=== PATIENT | male | born 1955 | race Caucasian/White ===

== ENCOUNTER 2017-05-29 10:14 | Inpatient (IN) ==
[2017-05-29] MEDS ORDERED: NS 1,000 ML IV ONE (10:42)
[2017-05-29] MEDS ORDERED: CEFEPIME 1 GM in NS 100 ML IV ONE (10:42)
--- NOTE | 2017-05-29 10:43 | Emergency Department Report ---
Skin/Abscess/FB HPI - General Chief complaint: Skin/Abscess/Foreign Body Stated complaint: swollen scrotum Time Seen by Provider: 05/29/17 10:40 Source: patient Mode of arrival: ambulatory Limitations: no limitations - History of Present Illness HPI narrative: Patient is a 61-year-old male, returns emergency room for evaluation of right scrotal/inguinal pain. Patient was evaluated 3 days ago for same complaint at that time was found have a scrotal abscess that had spontaneously drained. Patient was started on oral antibiotics recommended to follow with his primary care doctor. Patient recently presents to the ER, patient's had increased redness and swelling now going into the inguinal region, patient was post follow-up with primary medical doctor today, however given the increased swelling patient decided present to the ER instead. Patient's had some subjective fevers and chills. MD complaint: rash Onset (ago): day(s) - Related Data Home Medications Medication Instructions Recorded Confirmed Atorvastatin [Lipitor] 10 mg PO DAILY 05/26/17 06/14/17 Multivitamin [One Daily 1 tab PO DAILY 05/26/17 06/14/17 Multivitamin] Nisoldipine 25.5 mg PO DAILY 05/26/17 06/14/17 Valsartan [Diovan] 160 mg PO DAILY 05/26/17 06/14/17 Acetaminophen [Acetaminophen Extra 1,000 mg PO Q6H PRN 05/29/17 06/14/17 Strength] Ascorbate Calcium [Vitamin C] 500 mg PO DAILY 05/29/17 06/14/17 Cholecalciferol (Vitamin D3) 1,000 unit PO DAILY 05/29/17 06/14/17 [Vitamin D3] Magnesium Oxide [Magnesium] 500 mg PO MOWEFR 05/29/17 06/14/17 [employer]-3/Dha/Epa/Fish Oil [Fish Oil 1,000 mg PO DAILY 05/29/17 06/14/17 1,000 mg Softgel] Saw [place] 160 mg PO DAILY 05/29/17 06/14/17 Vitamin E 1,000 unit PO DAILY 05/29/17 06/14/17 Zinc Amino Acid Chelate [Zinc] 50 mg PO TUTHSA 05/29/17 06/14/17 Previous Rx's Medication Instructions Recorded Clindamycin [Cleocin] 300 mg PO QID #28 capsule 06/08/17 Hydrocodone/APAP 10/325 [[place] 1 - 2 tab PO DAILY PRN #10 tablet 06/08/17 10/325] Hydrocodone/APAP 7.5/325 [[place] 1 - 2 tab PO Q8-12HR PRN #20 tab 06/14/17 7.5/325] Allergies Allergy/AdvReac Type Severity Reaction Status Date / Time No Known Allergies Allergy Verified 05/29/17 10:50 Review of Systems Constitutional: Reports: fever, chills. Denies: weakness ENT: Denies: throat pain, dental pain Cardiovascular: Denies: chest pain, palpitations Gastrointestinal: Denies: abdominal pain, nausea, vomiting Genitourinary: Reports: testicular pain, testicular mass. Denies: dysuria, frequency Musculoskeletal: Denies: back pain, joint swelling Neurological: Denies: headache, weakness PFSH Patient Stated Medical History Hypertension Yes Substance Use Disorder Yes: CHEWING TOBACCO Medical History Updates: Hyperlipidemia - Social History Smoking status: Current every day smoker Physical Exam - General General appearance: alert, in no apparent distress - Head Head exam: normocephalic - ENT ENT exam: Present: normal oropharynx, mucous membranes moist - Neck Neck exam: Present: full ROM, trachea midline - Chest Chest inspection: Present: symmetric chest wall rise. Absent: tenderness, rash - Respiratory Respiratory exam: Present: normal lung sounds bilaterally. Absent: respiratory distress, wheezes, stridor - Cardiovascular Cardiovascular exam: Present: regular rate, normal rhythm, normal heart sounds - Abdominal Exam Abdominal exam: Present: soft. Absent: distention, tenderness, normal bowel sounds - exam: Present: normal inspection, other (patient does have markedly increased swelling with erythema of the right scrotum, now tracking up into the right inguinal region. Mild tenderness to palpation, also redness of the thigh) - Extremities Exam Extremities exam: Present: normal inspection, full ROM. Absent: tenderness - Back Exam Back exam: Present: full ROM. Absent: tenderness, CVA tenderness (R), CVA tenderness (L) - Skin Skin exam: Present: warm, dry - Neurological Exam Neurological exam: Present: alert, oriented X3 - Psychiatric Psychiatric exam: Present: normal affect, normal mood Course Vital Signs Temperature 98.5 F 05/29/17 10:21 Pulse Rate 78 05/29/17 10:21 Respiratory Rate 17 05/29/17 10:21 Blood Pressure 145/65 H 05/29/17 10:21 Pulse Oximetry 97 05/29/17 10:21 Temperature 97.0 F 06/08/17 15:17 Pulse Rate 67 06/08/17 15:17 Respiratory Rate 17 06/08/17 15:17 Blood Pressure 114/68 06/08/17 15:17 Pulse Oximetry 97 06/08/17 15:17 Skin/Abscess/Foreign Body - [facility] Narrative Medical decision making narrative: Patient is had a markedly change in the last 72 hours with erythema now tracking up into the inguinal region despite oral antibiotics. Patient is currently failed outpatient management, will obtain CT scan laboratories, start antibiotics. CT scan shows no discrete abscess, patient now with elevated white count, with neutrophilia bands are not elevated, sepsis markers are negative. Discussed case with Dr. Cardenas, he would recommend admit to hospitalist service consult him, discussed with hospitalist service they will admit - Differential Diagnosis Likely: abscess of skin or subcutaneous tissue - Medical Records Attestation: I reviewed the patient's medical records. - Lab Data Attestation: I reviewed the patient's lab results. Result diagrams: 06/08/17 04:21 06/08/17 04:21 Lab Results 05/29/17 05/29/17 05/29/17 Range/Units 11:00 11:00 11:00 WBC 17.1 H (4.5-11.0) T/MM3 RBC 3.06 L (4.50-5.90) M/MM3 Hgb 9.8 L (13.5-17.5) GM/DL Hct 28.0 L (41-53) % MCV 91.5 (80-100) UM3 MCH 32.0 (26-34) UUG MCHC 35.0 (31-37) GM/DL RDW Std Deviation 39.3 (36.9-50.2) FL Plt Count 301 (130-400) T/MM3 MPV 8.7 L (9.4-12.4) UM3 Immature Gran % (Auto) Not performed Neut % (Auto) Not performed Lymph % (Auto) Not performed [place] % (Auto) Not performed Eos % (Auto) Not performed Baso % (Auto) Not performed Neut # Not performed Lymph # Not performed [place] # Not performed Eos # Not performed Baso # Not performed Abs Immat Gran (auto) Not performed Neutrophils % (Manual) 83.0 H (33-66) % Band Neutrophils % 2.0 (0-6) % Lymphocytes % (Manual) 6.0 L (23-45) % Monocytes % (Manual) 9.0 (0-9.0) % Neutrophils # (Manual) 14.2 H (1.8-7.7) T/MM3 Band Neutrophils # 0.3 T/MM3 Lymphocytes # (Manual) 1.0 (1-4.8) T/MM3 Monocytes # (Manual) 1.5 H (0-0.8) T/MM3 RBC Morph Comment Normal Turbidity < 20 (0-20) Sodium 124 L (134-144) MEQ/L Potassium 4.0 (3.6-5) MEQ/L Chloride 91 L (98-107) MEQ/L Carbon Dioxide 20 L (22-30) MEQ/L Anion Gap 13 (5-15) MEQ/L BUN 11.0 (9-20) MG/DL Creatinine 1.1 (0.8-1.5) MG/DL GFR Calculation 69 BUN/Creatinine Ratio 10 (6-26) RATIO Glucose 119 H (75-110) MG/DL Calculated Osmolality 240 L (261-280) MOSM/KG Calcium 9.6 (8.4-10.2) MG/DL Iron (49-181) UG/DL TIBC (261-497) UG/DL % Saturation (13-59) % Icterus Index < 2 (0-7) Plasma Lactate 1.3 (0.6-2.2) MMOL/L Vitamin B12 (239-931) PG/ML Folate (2.76-20) NG/ML Procalcitonin 0.18 NG/ML Specimen Hemolysis < 15 (0-25) Ur Collection Type Urine Color (YELLOW) Urine Clarity Urine pH (5.0-8.0) Ur Specific [place] (1.015-1.025) Urine Protein (NEGATIVE) Urine Glucose (UA) (NEGATIVE) Urine Ketones (NEGATIVE) Urine Occult Blood (NEGATIVE) Urine Nitrate (NEGATIVE) Urine Bilirubin (NEGATIVE) Urine Urobilinogen (NORMAL) EU/DL Ur Leukocyte Esterase (NEGATIVE) Urinalysis Comment 05/29/17 05/29/17 Range/Units 11:00 11:04 WBC (4.5-11.0) T/MM3 RBC (4.50-5.90) M/MM3 Hgb (13.5-17.5) GM/DL Hct (41-53) % MCV (80-100) UM3 MCH (26-34) UUG MCHC (31-37) GM/DL RDW Std Deviation (36.9-50.2) FL Plt Count (130-400) T/MM3 MPV (9.4-12.4) UM3 Immature Gran % (Auto) Neut % (Auto) Lymph % (Auto) [place] % (Auto) Eos % (Auto) Baso % (Auto) Neut # Lymph # [place] # Eos # Baso # Abs Immat Gran (auto) Neutrophils % (Manual) (33-66) % Band Neutrophils % (0-6) % Lymphocytes % (Manual) (23-45) % Monocytes % (Manual) (0-9.0) % Neutrophils # (Manual) (1.8-7.7) T/MM3 Band Neutrophils # T/MM3 Lymphocytes # (Manual) (1-4.8) T/MM3 Monocytes # (Manual) (0-0.8) T/MM3 RBC Morph Comment Turbidity (0-20) Sodium (134-144) MEQ/L Potassium (3.6-5) MEQ/L Chloride (98-107) MEQ/L Carbon Dioxide (22-30) MEQ/L Anion Gap (5-15) MEQ/L BUN (9-20) MG/DL Creatinine (0.8-1.5) MG/DL GFR Calculation BUN/Creatinine Ratio (6-26) RATIO Glucose (75-110) MG/DL Calculated Osmolality (261-280) MOSM/KG Calcium (8.4-10.2) MG/DL Iron 18 L (49-181) UG/DL TIBC 264 (261-497) UG/DL % Saturation 7 L (13-59) % Icterus Index (0-7) Plasma Lactate (0.6-2.2) MMOL/L Vitamin B12 634 (239-931) PG/ML Folate > 20.0 H (2.76-20) NG/ML Procalcitonin NG/ML Specimen Hemolysis (0-25) Ur Collection Type Urine, clean catch Urine Color Yellow (YELLOW) Urine Clarity Clear Urine pH 5.0 (5.0-8.0) Ur Specific [place] <=1.005 L (1.015-1.025) Urine Protein Negative (NEGATIVE) Urine Glucose (UA) Negative (NEGATIVE) Urine Ketones Negative (NEGATIVE) Urine Occult Blood Trace-intact (NEGATIVE) Urine Nitrate Negative (NEGATIVE) Urine Bilirubin Negative (NEGATIVE) Urine Urobilinogen 0.2 (NORMAL) EU/DL Ur Leukocyte Esterase Negative (NEGATIVE) Urinalysis Comment Microscopic not ind. - Radiology Data Attestation: I reviewed the patient's radiology results. CT scan: Severe erythema and didn't edema consistent with cellulitis no signs of abscess Disposition Clinical Impression: Cellulitis Qualifiers: Site of cellulitis: other site Qualified Code(s): L03.818 - Cellulitis of other sites Leukocytosis Qualifiers: Leukocytosis type: other Qualified Code(s): D72.828 - Other elevated white blood cell count Disposition: To [facility] Acute Care Condition: Stable Time of Disposition: 13:52 - Seen By: physician
[2017-05-29] MEDS: SALINE FLUSH 10ml SYRINGE IVF PRN (11:06)
[2017-05-29] MEDS ORDERED: SALINE FLUSH 10ml SYRINGE ONE (11:43)
[2017-05-29] MEDS ORDERED: NS 100 ML ONE (11:43)
[2017-05-29] MEDS ORDERED: IOHEXOL 300mg/ml 75ml INJECTION ONE (11:43)
--- NOTE | 2017-05-29 12:55 | CT Scan Report ---
Indication: right sided scrotal abscess now induration inguinal PROCEDURE: CT pelvis w con: Encounter: Initial Comparison: None Technique: Axial postcontrast CT imaging of the pelvis was performed with coronal and sagittal two-dimensional reformats. Automated Exposure Control and Iterative Reconstruction dose reducing techniques were utilized. Contrast: Omnipaque 300 74mL Findings: The visualized small and large bowel loops in the pelvis are unremarkable. The bladder appears normal. No free fluid within the pelvis. Muscular attenuation is within normal limits. There is severe edema throughout the scrotum with scrotal skin thickening up to 1.5 cm in approximate thickness. The testicles cannot be seen discretely apart from this edematous tissue. There is also skin thickening and edema involving the penile shaft with edematous superficial skin measuring over 1 cm in thickness. There is inflammation extending along the right inguinal canal region with a few reactive lymph nodes and skin thickening. There is no discrete rim-enhancing abscess or drainable fluid collection appreciated. I do not see any subcutaneous or fascial area gas to suggest a necrotizing fasciitis/Anthony's gangrene. Bone windows show degenerative changes in the lower lumbar spine. There is a coarse probable calcification seen within the anterior scrotum measuring 6 mm in size which appears to be in the thickened skin layer. Impression: Severe penile, scrotal and right inguinal area inflammation and edema presumably due to a severe cellulitis. No drainable abscess seen. .
[2017-05-29 14:59] VITALS: BMI 27.9
[2017-05-29] MEDS ORDERED: ONDANSETRON 4 MG/2 ML INJECTION IVP PRN (16:46)
[2017-05-29] MEDS ORDERED: HYDROMORPHONE 2 MG/ML INJECTION IVP PRN (16:46)
[2017-05-29] MEDS ORDERED: ACETAMINOPHEN 500 MG TABLET PO PRN ×2 (17:02→17:08)
[2017-05-29] MEDS: PANTOPRAZOLE 40 MG INJECTION IVP SCH (17:10)
[2017-05-29] MEDS: NS 1,000 ML IV SCH (17:11)
[2017-05-29] MEDS: CLINDAMYCIN PB 600 MG/50 ML BAG IV SCH (17:21)
--- NOTE | 2017-05-29 17:22 | History & Physical Report ---
History of Present Illness Date: 05/29/17 Chief complaint: groin pain and cellulitis HPI: The patient is very pleasant 61-year-old male who states that he noted on the of this month that he had a bulge on the bottom of his right scrotum. He went to the emergency room and it was lanced and he was started on Bactrim. He was told to follow-up with his primary care physician today. Patient noted that when he went back to work on the the area became more swollen and painful and it was hard for him to work. He was intermittently using cold packs to the area to try to help it. Today he noticed that he had increased redness and tenderness in the scrotum penis and groin and presented to the emergency room. In the ER labs showed a white count of 17.1 with 83% neutrophils and 2% bands. Hemoglobin was 9.8. Temperature was 100.7. Heart rate 102. Blood pressure 179/ 82. Lactate was normal at 1.3. Sodium was 124. Remainder of the metabolic profile was essentially normal. Blood cultures were obtained and the patient was started on cefepime and vancomycin. CT pelvis was obtained and showed severe penile, scrotal and right inguinal area inflammation and edema presumably due to a severe cellulitis. No drainable abscess seen. No subcutaneous or fascial area gas to suggest a necrotizing fasciitis or Anthony' s gangrene. The hospital service was called to admit the patient. Dr. Cardenas was notified by the ER physician and was agreeable to surgical consultation. On my exam the patient states that he is tired and feels cold. He works nights so this is the time of day he is usually sleeping. He denies any pain in the right groin unless he is moving. He is not having any difficulties urinating. He has not necessarily felt febrile or sweaty. He has not noticed any chills. He does feel cold but he attributes this to the hospital being cold. He has been eating and drinking okay. He has not had any unusual weight loss. He states that since being in the emergency room he has a mild cough and phlegm in his throat. He states he has chronic anemia and is on iron. He is scheduled for a colonoscopy later this week. He has never had a colonoscopy in the past. He denies any hematemesis, black stools or red bloody stools. He denies any bleeding problems other than easy bruising. Review of Systems Review of systems: Comprehensive review of systems is negative other than the above in history of present illness [facility] Patient Stated Medical History Hypertension Yes Osteoarthritis Yes Substance Use Disorder Yes: CHEWING TOBACCO Hyperlipidemia Chronic iron deficiency anemia-scheduled for first colonoscopy later this week Medical History Updates: Hyperlipidemia Surgical History: Bilateral knee replacements Family History: Both parents in their early 60s and the patient states the cause of was unknown. - Social History Smoking status: Current every day smoker (chews tobacco, not a smoker) Alcohol intake frequency: 3 or more drinks per day (2-3 beers a day-never had DTs) Medications Home Medications Medication Instructions Recorded Confirmed Type Atorvastatin [Lipitor] 10 mg PO DAILY 05/26/17 05/29/17 History Multivitamin [One Daily 1 tab PO DAILY 05/26/17 05/29/17 History Multivitamin] Nisoldipine [Nisoldipine] 25.5 mg PO DAILY 05/26/17 05/29/17 History Valsartan [Diovan] 160 mg PO DAILY 05/26/17 05/29/17 History Acetaminophen [Acetaminophen Extra 1,000 mg PO Q6H PRN 05/29/17 05/29/17 History Strength] Ascorbate Calcium [Vitamin C] 500 mg PO DAILY 05/29/17 05/29/17 History Cholecalciferol (Vitamin D3) 1,000 unit PO DAILY 05/29/17 05/29/17 History [Vitamin D3] Ferrous Sulfate [Iron] 325 mg PO DAILY 05/29/17 05/29/17 History Magnesium Oxide [Magnesium] 500 mg PO MOWEFR 05/29/17 05/29/17 History [place]-3/Dha/Epa/Fish Oil [Fish Oil 1,000 mg PO DAILY 05/29/17 05/29/17 History 1,000 mg Softgel] Saw [place] 160 mg PO DAILY 05/29/17 05/29/17 History Vitamin E 1,000 unit PO DAILY 05/29/17 05/29/17 History Zinc Amino Acid Chelate [Zinc] 50 mg PO TUTHSA 05/29/17 05/29/17 History Allergies Allergy/AdvReac Type Severity Reaction Status Date / Time No Known Allergies Allergy Verified 05/29/17 10:50 Exam Vital Signs: Temperature 102.5 F H 05/29/17 16:52 Pulse Rate 100 05/29/17 16:52 Respiratory Rate 20 05/29/17 16:52 Blood Pressure 137/66 05/29/17 16:52 Pulse Oximetry 92 05/29/17 16:52 Oxygen Delivery Method Room Air Height: 1.83 m Weight: 93.5 kg Body Mass Index: 27.9 Comments: GEN-alert, oriented, no acute distress HEENT-sclera anicteric, pupils equal, oropharynx is moist NECK-supple, no carotid bruits CV-regular rate and rhythm with a 2/6 systolic murmur CHEST-clear to auscultation bilaterally ABD-soft, nontender, nondistended with positive bowel sounds -the patient has some mild penile edema and erythema, he has erythema and induration of the right side of his scrotum with a firmness about the size of an olive in the inferior portion of the scrotum and erythema of the right groin and the upper right medial thigh. The right medial groin is indurated and tender as is the scrotum. No open lesions are seen and there are no signs of drainage EXT-no edema NEURO-alert and oriented 3, moves all 4 extremities SKIN-warm and dry. Face is mildly flushed but no rashes. No itching. Results - Labs CBC & Chem 7: 05/29/17 11:00 05/29/17 11:00 Labs: First lactate 1.3, repeat lactate 1.0. Pro calcitonin 0.18 Microbiology Results: Blood cultures obtained and are pending - Impressions Impression Severe cellulitis of the right groin, scrotum and penis Sepsis -fever, elevated white count, cellulitis Hyponatremia Mild metabolic acidosis Iron Deficiency anemia-chronic Hypertension Chronic alcohol use 2-3 beers per day Easy bruising Plan The patient is being admitted as inpatient secondary to sepsis from cellulitis. Continue vancomycin and cefepime that were initiated in the emergency room. Add clindamycin IV. Pharmacy consult for vancomycin dosing. Monitor vital signs closely with sepsis. Normal saline at 100 and hour. Recheck CBC, BMP tomorrow. Anemia workup with Hemoccults, iron panel, B-12 and folate. Check INR and PTT for easy bruising Hold antihypertensives at this time secondary to sepsis Monitor for signs of all withdrawal, although, patient's reported alcohol use is not overly excessive Greater than 1 hour of time spent seeing and evaluating the patient in determining care plan Sepsis Assessment - Evaluation Sepsis screening result: Sepsis Risk Hospital Course Summary Disclaimer: The visit summary below is not to be considered part of the above Progress Note.
[2017-05-29] MEDS: CEFEPIME 1 GM in NS 100 ML IV SCH ×2 (17:54→23:40)
--- NOTE | 2017-05-29 18:23 | Pharmacy Consult-Antibiotics ---
Pharmacy Consult-Vancomycin - Laboratory Information WBC 17.1 T/MM3 (4.5-11.0) H 05/29/17 11:00 BUN 11.0 MG/DL (9-20) 05/29/17 11:00 Creatinine 1.1 MG/DL (0.8-1.5) 05/29/17 11:00 Procalcitonin 0.18 NG/ML 05/29/17 11:00 - Consult Information 61 y.o. male on Vancomycin protocol, clindamycin and cefepime for empiric coverage of sepsis secondary to cellulitis. goal trough range= 15 - 20 mcg/ml Vancomycin 2,000 mg iv x1 dose was started in ER. Will give Vancomycin 1,750 mg IV q12h. This gives an estimated trough of ~16 mcg/ml. Pharmacy will monitor and adjust as needed. Thank you, Brittanie Faulkner [facility]
[2017-05-29] MEDS: THIAMINE 200mg/2ml INJECTION IVP SCH (19:05)
[2017-05-29] MEDS: FOLIC ACID 5 MG/ML INJECTION IVP SCH (19:05)
[2017-05-29] MEDS: ATORVASTATIN 10 MG TABLET PO SCH (22:00)
[2017-05-30] MEDS: CLINDAMYCIN PB 600 MG/50 ML BAG IV SCH ×3 (02:30→17:08)
[2017-05-30] MEDS: NS 1,000 ML IV SCH ×3 (04:28→13:38)
[2017-05-30] MEDS: CEFEPIME 1 GM in NS 100 ML IV SCH ×4 (05:52→23:24)
--- NOTE | 2017-05-30 07:20 | General Surgery Consult Note ---
Consult date: 05/30/17 Attending Physician: Mireya George MD Reason for consult: wound care (scrotum and inguinal cellulitis) [facility] Patient Stated Medical History Hypertension Yes Osteoarthritis Yes Substance Use Disorder Yes: CHEWING TOBACCO Medical History Updates: Hyperlipidemia Surgical History: Bilateral knee replacements Family History: parents in their 60's, not sure of cause - Social History Alcohol intake frequency: 0-2 drinks per day Current occupational status: employed Does patient use chewing tobacco?: Yes Medications Home Medications Medication Instructions Recorded Confirmed Type Atorvastatin [Lipitor] 10 mg PO DAILY 05/26/17 05/29/17 History Multivitamin [One Daily 1 tab PO DAILY 05/26/17 05/29/17 History Multivitamin] Nisoldipine [Nisoldipine] 25.5 mg PO DAILY 05/26/17 05/29/17 History Valsartan [Diovan] 160 mg PO DAILY 05/26/17 05/29/17 History Acetaminophen [Acetaminophen Extra 1,000 mg PO Q6H PRN 05/29/17 05/29/17 History Strength] Ascorbate Calcium [Vitamin C] 500 mg PO DAILY 05/29/17 05/29/17 History Cholecalciferol (Vitamin D3) 1,000 unit PO DAILY 05/29/17 05/29/17 History [Vitamin D3] Ferrous Sulfate [Iron] 325 mg PO DAILY 05/29/17 05/29/17 History Magnesium Oxide [Magnesium] 500 mg PO MOWEFR 05/29/17 05/29/17 History [place]-3/Dha/Epa/Fish Oil [Fish Oil 1,000 mg PO DAILY 05/29/17 05/29/17 History 1,000 mg Softgel] Saw [place] 160 mg PO DAILY 05/29/17 05/29/17 History Vitamin E 1,000 unit PO DAILY 05/29/17 05/29/17 History Zinc Amino Acid Chelate [Zinc] 50 mg PO TUTHSA 05/29/17 05/29/17 History Allergies Allergy/AdvReac Type Severity Reaction Status Date / Time No Known Allergies Allergy Verified 05/29/17 10:50 Review of Systems 10-point ROS: negative except for HPI and the following: - General General: Present: chills - Respiratory Respiratory: Present: cough - Gastrointestinal Additional comments: Scheduled for colonoscopy with Ronald June 01 - Vital Signs Last Vital Signs Temp 99.5 F 05/30/17 04:00 Pulse 77 05/30/17 04:00 Resp 16 05/30/17 04:00 BP 127/77 05/30/17 04:00 Pulse Ox 95 05/30/17 04:00 - Laboratory Result Diagrams: 05/30/17 04:35 05/30/17 04:35 General Surgery Results - Results Labs: 05/30/17 04:35 05/30/17 04:35 Hospital Course Summary Disclaimer: The visit summary below is not to be considered part of the above Progress Note. Sepsis Assessment - Evaluation Sepsis screening result: No Definite Risk
--- NOTE | 2017-05-30 08:15 | Consultation ---
DATE OF CONSULTATION 05/29/2017 FINDINGS Mr. Cloud is a 61-year-old gentleman I was asked to see today as a result of his history and physical findings of right inguinal pain, cellulitis involving right inguinal region. The patient informs me that over the course of the weekend he had noted a "knot" involving his right testicle. The patient states he presented to our emergency room facility over the weekend and had a small abscess involving his right testicle "lanced." The patient states that he was seen by the emergency room physician who had "stuck a knife into abscess". The patient states that he was given a prescription for antibiotics but did not have this filled until Sunday. The patient states that after going to the emergency room on Sunday he had placed a fair amount of ice overlying the right scrotal region. The patient states that the swelling had markedly improved. The patient states that he noted earlier today that the swelling and redness had become significantly worse involving the right inguinal region and right scrotal region. He therefore re-presented to the emergency room for further evaluation. Upon questioning the patient, he denied any history for fever or chills. Reviewing the patient's electronic medical record, I do see, however, that he had a fever earlier today of 102. Upon questioning the patient , he denied much pain within the right inguinal region or the right scrotal region unless he "walked around." The patient states that when he was lying in bed he did not have much pain but with ambulation noted a fair amount of pain within the right inguinal/ right testicular region. The patient denies history for diabetes mellitus. He denies prior history for wound infections or abscesses involving his skin in the past. PAST MEDICAL HISTORY Will be performed by my nurse practitioner, Adelfo Raya. PAST SURGICAL HISTORY Will be performed by my nurse practitioner, Adelfo Raya. MEDICATIONS Will be performed by my nurse practitioner, Adelfo Raya. ALLERGIES Will be performed by my nurse practitioner, Adelfo Raya. SOCIAL HISTORY Will be performed by my nurse practitioner, Adelfo Raya. FAMILY HISTORY Will be performed by my nurse practitioner, Adelfo Raya. REVIEW OF SYSTEMS Will be performed by my nurse practitioner, Adelfo Raya. PHYSICAL EXAMINATION Mr. Cloud is a 61-year-old gentleman who upon my entering the room was resting and did not appear to be in any acute distress. VITAL SIGNS: Temperature 102.5. Pulse 100. Respirations 20. Blood pressure 137/66. SaO2 92% on room air. HEENT: Normocephalic. Pupils are equal, round and reactive to light and accommodation. CHEST: Clear to auscultation bilaterally. HEART: Regular rate and rhythm. Normal S1 and S2 without gallops, murmurs or clicks. ABDOMEN: Palpation of the abdomen reveals it to be soft and nontender. I do not appreciate any evidence for hepatosplenomegaly or abnormal masses. EXTREMITIES: Without clubbing, cyanosis, or edema. NEURO: Cranial nerves II-XII grossly intact. Patient is without focal motor or sensory deficits. : Attention was focused to the area of concern. There is marked induration and erythema involving the right inguinal region. One can feel a marked area of firmness at this location. There is no evidence for subcutaneous crepitus upon palpation. This area of erythema and induration does extend down into the right testicular region. One can see a small ulcerated open wound involving the lateral aspect of the right scrotum. The patient states this is where the "ER doctor stuck the knife." There is small amount of purulent drainage coming forth from the wound opening. There is not as much induration and erythema noted within the scrotum as within the right inguinal region. The area of erythema and edema also extends upon to the shaft of the penis itself. There is no evidence for "purplish discoloration" of the skin involving the inguinal region, scrotal region or shaft of the penis. The skin is, as stated above, quite erythematous in nature. LABORATORY/RADIOGRAPH EVALUATION The patient had a CBC and his white count was elevated at 17.1. Did have a left shift with 83% neutrophils and 2% bands. A CMP was obtained and found to be essentially within normal limits. A plasma lactate level was obtained as well as a procalcitonin level and found to be within normal limits. The patient had a CT scan of his abdomen and pelvis obtained. I did review the CT scan personally as well as the dictated report. The CT scan revealed severe penile, scrotal and right inguinal inflammation and edema. There was no drainable abscess identified. Findings were consistent with that of severe cellulitis. There was no evidence of subcutaneous gas to suggest necrotizing fasciitis. ASSESSMENT 61-year-old gentleman with severe cellulitis involving right inguinal region/ right scrotal region. The patient at this time appears to be without Anthony' s gangrene/necrotizing fasciitis. PLAN The patient was informed that I am concerned in regard to the marked inflammatory process present involving his right inguinal region and right scrotal region. At this point in time it is my clinical intuition that he does not have necrotizing fasciitis/Anthony's gangrene. It would be my recommendation that we continue with broad-spectrum antibiotics as initiated upon admission. Will reevaluate the situation tomorrow morning. If there has been progression of the cellulitis or if his clinical status has worsened, will likely proceed with surgical exploration of the right inguinal region and right scrotal region at that time despite his negative CT scan and normal plasma lactate level and calcitonin level. If, on the other hand, one begins to see some improvement from a clinical standpoint as well as from a laboratory standpoint, will then continue to follow closely. Will go ahead and give the patient clear liquids this evening. Will make him n.p.o. after midnight. Will reevaluate tomorrow morning and proceed accordingly as above. DEBORAH
[2017-05-30] MEDS: FOLIC ACID 5 MG/ML INJECTION IVP SCH (08:39)
[2017-05-30] MEDS: PANTOPRAZOLE 40 MG INJECTION IVP SCH (08:41)
[2017-05-30] MEDS: THIAMINE 200mg/2ml INJECTION IVP SCH (08:41)
[2017-05-30] MEDS: SALINE FLUSH 10ml SYRINGE IVF PRN (08:47)
--- NOTE | 2017-05-30 09:13 | XRay Report ---
Indication: cough PROCEDURE: XR chest 1V: Encounter: Initial Comparison: None FINDINGS: The lungs are clear. There is no abnormal airspace opacity, pleural effusion or pneumothorax identified. The heart size, pulmonary vasculature and mediastinum are within normal limits. IMPRESSION: No acute cardiopulmonary abnormality. .
--- NOTE | 2017-05-30 10:32 | Progress Note ---
DATE 05/30/2017 FINDINGS Mr. Cloud states that this morning he is "worse." He is having more pain. He states that the redness has increased in size. VITALS: The patient has been afebrile since 10 o'clock last evening. T-max at 10 o'clock was 100.2. Current temperature 99.0, pulse 72, respiration 17, blood pressure 140/77. HEENT: Normocephalic. Pupils are equal, round and reactive to light and accommodation. CHEST: Clear to auscultation bilaterally. HEART: Regular rate and rhythm. Normal S1 and S2 without gallops, murmurs or clicks. ABDOMEN: Soft, nontender. Attention was focused the right inguinal region. The erythema has increased in size from last evening. The area was fairly well localized to the inguinal ligament region last evening. Now it has spread onto the lower abdominal wall, right hip, and right thigh region. There is still marked induration involving the inguinal region. Palpation does not reveal any evidence for fluctuance. Right scrotum continues to have a small pustule/ opening along the lateral aspect of the scrotum itself. Scrotum is also found be quite indurated and erythematous in nature. LABORATORY/RADIOGRAPH EVALUATION The patient's white count has actually increased to 18.6. He has increased bandemia now at 8%. ASSESSMENT 61-year-old gentleman with history for a right scrotal abscess which has now developed marked associated cellulitis and induration. Rule out necrotizing fasciitis. PLAN Given the increasing redness, increasing discomfort, increasing leukocytosis, increased bandemia, it is my recommendation to the patient that we should err on the cautious side and go ahead and proceed with exploration of his inguinal/ scrotal cellulitis/wound. It is my clinical intuition that we are not dealing with that of necrotizing fasciitis, but nonetheless, as a result of above indications, I do believe that it is indicated to proceed with additional exploration and excisional debridement as dictated upon intraoperative findings. I did discuss with the patient what exploration of the scrotal wound and inguinal cellulitis would entail with additional possible excisional surgical debridement pending intraoperative findings. The patient understood and wished to proceed. DEBORAH
[2017-05-30] MEDS ORDERED: PROPOFOL 20 ML ONE ×2 (11:55→13:11)
[2017-05-30] MEDS ORDERED: FentaNYL 100 MCG/2 ML INJECTION ONE ×2 (11:56→12:49)
--- NOTE | 2017-05-30 12:04 | Anesthesia Preoperative Report ---
Anesthesia Preoperative Record - Date and Time Date: 05/30/17 Preoperative Diagnosis: Cellulitis and sepsis Proposed Procedure: excisional debridement scrotal wound NPO Since Date: 05/30/17 NPO Since Time: 00:01 Allergies/Adverse Reactions: Allergies Allergy/AdvReac Type Severity Reaction Status Date / Time No Known Allergies Allergy Verified 05/29/17 10:50 - Vital Signs Vital Signs: Temperature 98.4 F 05/30/17 11:26 Pulse Rate 79 05/30/17 11:26 Respiratory Rate 16 05/30/17 11:26 Blood Pressure 142/71 H 05/30/17 11:26 Pulse Oximetry 95 05/30/17 11:26 Oxygen Delivery Method Room Air Height and Weight: Height 1.83 m Weight 96 kg Body Mass Index 27.9 - Medications Inpatient Medications: Current Medications Acetaminophen (Tylenol) 650 mg PO Q5H PRN PRN Reason: Discomfort Last Admin: 05/29/17 17:11 Dose: 650 mg Acetaminophen (Tylenol) 1,000 mg PO Q6H PRN PRN Reason: Pain Acetaminophen/Hydrocodone Bitart ([place] 5/325) 1 tab PO Q6H PRN PRN Reason: Pain Atorvastatin Calcium (Lipitor) 10 mg PO HS [facility] Last Admin: 05/29/17 22:00 Dose: 10 mg Folic Acid (Folate) 1 mg IVP DAILY [facility] Last Admin: 05/30/17 08:39 Dose: 1 mg Hydromorphone HCl (Dilaudid) 0.5 - 1 mg IVP Q2H PRN PRN Reason: Pain Sodium Chloride (Normal Saline) 1,000 mls @ 100 mls/hr IV .Q10H [facility] Last Admin: 05/30/17 07:13 Dose: 100 mls/hr Clindamycin Phosphate (Cleocin Premix) 600 mg in 50 mls @ 100 mls/hr IV Q8H [facility] Last Infusion: 05/30/17 09:09 Dose: Infused Cefepime HCl 1 gm/ Sodium (Chloride) 100 mls @ 200 mls/hr IV Q6H [facility] Last Infusion: 05/30/17 06:22 Dose: Infused Vancomycin HCl 1,750 mg/ (Sodium Chloride) 500 mls @ 250 mls/hr IV Q12H [facility] Last Infusion: 05/30/17 02:30 Dose: Infused Ondansetron HCl (Zofran) 4 mg IVP Q6H PRN PRN Reason: Nausea &/or vomiting Pantoprazole Sodium (Protonix Iv) 40 mg IVP DAILY [facility] Last Admin: 05/30/17 08:41 Dose: 40 mg Sodium Chloride (Iv Flush) 10 - 80 ml IVF PRN PRN PRN Reason: Flushing Last Admin: 05/30/17 08:47 Dose: 30 ml Thiamine HCl (Vitamin B-1) 100 mg IVP DAILY [facility] Last Admin: 05/30/17 08:41 Dose: 100 mg Home Medications: Home Medications Medication Instructions Recorded Confirmed Type Atorvastatin [Lipitor] 10 mg PO DAILY 05/26/17 05/29/17 History Multivitamin [One Daily 1 tab PO DAILY 05/26/17 05/29/17 History Multivitamin] Nisoldipine [Nisoldipine] 25.5 mg PO DAILY 05/26/17 05/29/17 History Valsartan [Diovan] 160 mg PO DAILY 05/26/17 05/29/17 History Acetaminophen [Acetaminophen Extra 1,000 mg PO Q6H PRN 05/29/17 05/29/17 History Strength] Ascorbate Calcium [Vitamin C] 500 mg PO DAILY 05/29/17 05/29/17 History Cholecalciferol (Vitamin D3) 1,000 unit PO DAILY 05/29/17 05/29/17 History [Vitamin D3] Ferrous Sulfate [Iron] 325 mg PO DAILY 05/29/17 05/29/17 History Magnesium Oxide [Magnesium] 500 mg PO MOWEFR 05/29/17 05/29/17 History [place]-3/Dha/Epa/Fish Oil [Fish Oil 1,000 mg PO DAILY 05/29/17 05/29/17 History 1,000 mg Softgel] Saw [place] 160 mg PO DAILY 05/29/17 05/29/17 History Vitamin E 1,000 unit PO DAILY 05/29/17 05/29/17 History Zinc Amino Acid Chelate [Zinc] 50 mg PO TUTHSA 05/29/17 05/29/17 History Is Patient on Beta Yamila?: No - Medical History Cardiovascular: Reports: Hypertension, High Cholesterol - Surgical History Musculoskeletal Surgery/Tx: Reports: Total Knee Replacement (bilateral) Anesthesia Reactions: None Hx Family Anesthesia Reaction: No History of Motion Sickness: No - Social History Smoking Status: Never smoker Hx Chewing Tobacco Use: Yes Alcohol Intake Frequency: 0-2 drinks per day Last Drink: days (ago) - Pertinent Findings Laboratory: CBC and BMP 05/30/17 04:35 05/30/17 04:35 BMP 05/30/17 04:35 Sodium 128 L Potassium 4.2 Chloride 97 L D Carbon Dioxide 24 BUN 9.0 Creatinine 1.0 Glucose 95 Calcium 9.0 Liver Function 05/30/17 Range/Units 04:35 Total Bilirubin 0.80 (0.20-1.30) MG/DL AST 19 (17-59) U/L ALT 29 (21-72) U/L Alkaline Phosphatase 65 (38-126) U/L Albumin 3.5 (3.5-5.0) G/DL EKG Rhythm: Normal Sinus Rhythm - Physical Exam Respiratory Exam: Present: lungs clear Cardiovascular Exam: Present: regular rate and rhythm, no murmur - Airway Assessment Mallampati Score: I TMD: 3 Fingerbreadths Neck Extension: good Teeth: chipped teeth/crowns Overall Assessment: no airway concerns - ASA ASA Score: 2 - Plan Anesthesia: General Inhalation Gases - Discussion Discussion: Discussed risks/options/alternatives of anesthesia and questions answered. Patient consents. Nursing pain assessment noted. Attestation Statement: Prior to the delivery of any anesthetic medication, I examined the patient, developed the plan, obtained the patient's consent and discussed the risk and benefits of the procedure with the patient/guardian. - Additional Information Seen by Anesthesia: Yes
[2017-05-30] MEDS ORDERED: SUCCINYLCHOLINE 20mg/mL 10mL INJECTION ONE (12:15)
[2017-05-30] MEDS ORDERED: ROCURONIUM 50 MG/5 ML INJECTION IVP ONE (12:36)
[2017-05-30] MEDS ORDERED: SUGAMMADEX 200mg/2ml INJECTION IVP ONE (13:09)
--- NOTE | 2017-05-30 13:24 | Progress Note ---
Subjective: The patient was seen this morning in his room. He stated that the erythema in his groin was worse today. He states the area is tender to touch. He denies any further chills today. He denies any shortness of breath. The cough he had yesterday has resolved. He denies any chest pain. He denies any nausea or vomiting. He is urinating without difficulties. Objective Vital signs: Temperature 98.4 F 05/30/17 11:26 Pulse Rate 79 05/30/17 11:26 Respiratory Rate 16 05/30/17 11:26 Blood Pressure 142/71 H 05/30/17 11:26 Pulse Oximetry 95 05/30/17 11:26 Oxygen Delivery Method Room Air Rhythm: Normal Sinus Rhythm Comments: GEN-alert, oriented, no acute distress HEENT-sclera anicteric, oropharynx is moist NECK-supple CV-regular rate and rhythm CHEST-clear to auscultation bilaterally ABD-soft, nontender and nondistended with positive bowel sounds -increased area of erythema and increased induration in the right groin radiating around to the right hip area. Scrotum is erythematous and indurated. Penis is mildly erythematous EXT-no lower extremity edema, SCDs are on NEURO-no focal deficits SKIN-no rashes or skin abnormalities other than dictated above under "" Results - Labs CBC & Chem 7: 05/30/17 04:35 05/30/17 04:35 Labs: Bands are increased to 8 today up from 2 yesterday. Neutrophils 74%. B 12 is normal at 634, folate is greater than 20, iron is low at 18, iron sat is low at 7 Microbiology Results: Microbiology 05/30/17 12:46 Groin Deep Wound Culture - Preliminary Culture Initiated - Results Pending Assessment and Plan Assessment and Plan: 05/30/2017 Impression Severe cellulitis of the right groin, scrotum and penis-cefepime, vancomycin and clindamycin initiated 05/29/2017 Sepsis-with fever, elevated white count, and cellulitis Hyponatremia-sodium improved from 124, now up to 128 on normal saline Mild metabolic acidosis-resolved Chronic iron deficiency anemia despite being on oral iron for over one year Hypertension-currently well controlled despite valsartan and nisoldipine being on hold for recent diagnosis of sepsis Chronic alcohol use (patient states 2-3 beers per day)-no signs or symptoms of withdrawal Easy bruising-with normal INR, PTT and platelet count Plan Discussed this morning with Dr. Cardenas. He did take the patient to the OR today for wide surgical debridement of necrotic skin, subcutaneous tissue and fascia. A large abscess was found. Deep wound cultures were obtained. Continue IV fluids for hyponatremia and recheck tomorrow. Advance diet when okay with Dr. Cardenas Monitor blood pressure and consider restarting nisoldipine Regarding the patient's chronic iron deficiency anemia despite oral iron over one year, consider IV iron when signs of infection have improved. Would also consider EGD and colonoscopy for workup of anemia. Continue Protonix for GI protection considering his alcohol use and chronic anemia. Continue SCDs for DVT prophylaxis. Increase activity as tolerated. Sepsis Assessment - Evaluation Sepsis screening result: No Definite Risk Hospital Course Summary Disclaimer: The visit summary below is not to be considered part of the above Progress Note.
--- NOTE | 2017-05-30 13:25 | General Surgery Procedure Note ---
Date of Procedure: 05/30/17 Surgeon: Ronald Postoperative Diagnosis: large abscess with cellulits right inguinal and scrotal area Procedure: wide surgical debridement of necrotic skin, subcutaneous tissue and fascia of right inguinal and scrotal area, 16x2x4 cm. Estimated Blood Loss: See Anesthesia Record.
--- NOTE | 2017-05-30 14:00 | Anesthesia Postoperative Note ---
- Date and Time Date: 05/30/17 Time: 14:00 - Status Patient Participated in Evaluation: Patient Participated in Person Vital Signs: Temperature 98.2 F 05/30/17 13:19 Pulse Rate 69 05/30/17 13:35 Respiratory Rate 05/30/17 13:35 Blood Pressure 133/76 05/30/17 13:35 Pulse Oximetry 97 05/30/17 13:35 Oxygen Delivery Method Room Air Respiratory Function: Airway Patent, Irregular Respirations Cardiovascular Function: Regular Pulse EKG Rhythm: Normal Sinus Rhythm Mental Status: Alert and Oriented Pain Intensity: 0 Hydration: Taking PO Fluids Complications During Recover: None Apparent - Follow-Up Instructions Instructions: Per Surgeon
[2017-05-30] MEDS: ATORVASTATIN 10 MG TABLET PO SCH (21:29)
[2017-05-30] MEDS: HYDROCODONE/APAP 5mg/325mg TABLET PO PRN (23:25)
[2017-05-31] MEDS: CLINDAMYCIN PB 600 MG/50 ML BAG IV SCH ×3 (00:42→16:35)
[2017-05-31] MEDS: NS 1,000 ML IV SCH ×2 (00:58→08:30)
[2017-05-31] MEDS: CEFEPIME 1 GM in NS 100 ML IV SCH ×2 (06:09→11:56)
[2017-05-31] MEDS: PANTOPRAZOLE 40 MG INJECTION IVP SCH (08:37)
[2017-05-31] MEDS: THIAMINE 200mg/2ml INJECTION IVP SCH (08:37)
[2017-05-31] MEDS: FOLIC ACID 5 MG/ML INJECTION IVP SCH (10:21)
--- NOTE | 2017-05-31 10:36 | Operative Note ---
DATE OF SERVICE 05/30/2017 SURGEON Brijesh Cardenas MD PREOPERATIVE DIAGNOSIS Wound/cellulitis involving right scrotum and right inguinal region. POSTOPERATIVE DIAGNOSIS Wound/cellulitis involving right scrotum and right inguinal region, intraoperative findings suggestive for some early necrotizing fasciitis. PROCEDURE Exploration of wound involving right scrotal region and right inguinal region with excisional surgical debridement of skin, subcutaneous tissues and small portion of fascia. ANESTHESIA General endotracheal EBL AND FLUIDS Please see chart. BRIEF HISTORY/INDICATIONS Mr. Cloud is a 61-year-old gentleman whom I was asked to see last evening as a result of wound involving the right scrotal region in conjunction with surrounding cellulitis. The patient was began on broad-spectrum antibiotics. CT scan was obtained but did not reveal any evidence for necrotizing fasciitis or drainable abscess. Patient was seen in follow-up earlier this morning. His erythema had significantly increased. He had increasing leukocytosis and bandemia. As a result of the above indications, it was recommended that he undergo exploration of this area of cellulitis in conjunction with a small wound involving the lateral aspect of the right scrotum. For completeness please refer to notes included in the patient's chart. DESCRIPTION OF PROCEDURE After informed consent was obtained, patient was brought to the operative suite and placed on the table in a lithotomy position. The scrotal region and right inguinal region was then prepped and draped in sterile fashion. Formal time- out was then completed. Next, a hemostat was then introduced into a small open wound involving the lateral aspect of the right scrotum. Hemostat was then able to be advanced in a cephalad fashion up into the right inguinal region. Copious amount of [place] purulent material was then began to be expressed from this small opening once the hemostat had been introduced. 0.25% Marcaine with epinephrine was then injected overlying the hemostat within the subcuticular and subcutaneous tissues. Next an incision which began upon the scrotum and extended all the way up into the right inguinal region was then made overlying the underlying abscess cavity. The underlying tissues were then carefully explored. No significant necrosis was noted within the inguinal region. However, one could begin to see some signs of early necrotizing fasciitis involving the scrotal region. There were some underlying subcutaneous tissues that were necrotic and no longer adherent to the underlying fascia. A small portion of the fascia was somewhat "ashen almonte" as well near the scrotal region extending into the lower inguinal region. All areas of necrosis were sharply debrided with a knife and utilizing a surgical curette. Once all nonviable tissue had been debrided, hemostasis was obtained within the wound. The incision itself was about 15-18 cm in total length. The width of the wound after the incision had been performed was about 4-5 cm in nature throughout the length of the incision. Once meticulous hemostasis had been obtained, the wound was then packed with moistened Kerlix followed by a sterile dressing. The patient tolerated the procedure without difficulty, was sent back to the recovery room once he had been deemed in stable condition. DEBORAH
--- NOTE | 2017-05-31 12:36 | General Surgery Progress Note ---
Subjective Narrative: The right groin debridement site is tender, worse with activity. Outer dressings have not been changed during the night. Denies chest pain, SOA, other concerns - Vital Signs Last Vital Signs Temp 97.3 F 05/31/17 11:00 Pulse 67 05/31/17 11:00 Resp 16 05/31/17 11:00 BP 147/83 H 05/31/17 11:00 Pulse Ox 95 05/31/17 11:00 - Laboratory Result Diagrams: 05/31/17 04:33 05/31/17 04:33 Laboratory Tests 05/29/17 05/30/17 05/31/17 11:00 04:35 04:33 WBC 17.1 H 18.6 H 17.1 H - Microbiogy Microbiology 05/30/17 12:46 Groin Gram Stain - Final 05/30/17 12:46 Groin Deep Wound Culture - Preliminary Staphylococcus aureus - Normal Exam General: no acute distress Cardiovascular: regular rate Respiratory: no labored breathing Wound/Stoma/Drain Assessment - Wound Management Right Perineal Wound Type: Open Wound (post surgical debridement right inguinal and scrotal area. Packing removed after Dilaudid 1 mg IV. Majoriy of wound is beefy, with small (2-3 mm) scattered areas of soft almonte tissue. Erythema in periwound area extendes to right iliac crest and down posterior to buttock. Scrotum and penis still quite demetous,although slightly less than yesterday.) Assessment and Plan (1) Abscess of groin, right Current Visit: Yes Status: Acute (2) Cellulitis Current Visit: Yes Status: Acute Qualifiers: Site of cellulitis: other site Qualified Code(s): L03.818 - Cellulitis of other sites (3) Leukocytosis Current Visit: Yes Status: Acute Qualifiers: Leukocytosis type: other Qualified Code(s): D72.828 - Other elevated white blood cell count Plan: Packing removed today and found to be mostly nice and beefy. A few scattered small area of almonte soft necrotic tissue. Repacked loosely with NS Kerlex roll. Leukocytosis peristent. Continue ABX for now, final cultures pending, so far staph aureus. Dr. Cardenas contacted Jasmyne in wound clinic for application of Instill Wound Vac today. Dialudid increased to 0.5-1.5 mg so larger dose can be utilized for wound vac changes. Anticipate delayed closure once wound bed presents with good granulation, sometimes 10-14 days. Hospital Course Summary Disclaimer: The visit summary below is not to be considered part of the above Progress Note. Sepsis Assessment - Evaluation Sepsis screening result: No Definite Risk
[2017-05-31] MEDS: HYDROMORPHONE 2 MG/ML INJECTION IVP PRN (13:34)
--- NOTE | 2017-05-31 14:25 | Pharmacy Consult-Antibiotics ---
Pharmacy Consult-Vancomycin - Laboratory Information WBC 17.1 T/MM3 (4.5-11.0) H 05/31/17 04:33 BUN 9.0 MG/DL (9-20) 05/31/17 04:33 Creatinine 1.0 MG/DL (0.8-1.5) 05/31/17 04:33 Procalcitonin 0.18 NG/ML 05/29/17 11:00 Vancomycin Trough 15.00 UG/ML (15-20) 05/31/17 00:10 - Consult Information Vancomycin trough is acceptable. Will continue current regimen of vancomycin 1750mg IV q12h. Thank you.
[2017-05-31] MEDS: HYDROCODONE/APAP 5mg/325mg TABLET PO PRN ×2 (16:01→20:26)
--- NOTE | 2017-05-31 16:36 | Progress Note ---
Objective Vital signs: Temperature 96.2 F L 05/31/17 15:00 Pulse Rate 67 05/31/17 15:00 Respiratory Rate 20 05/31/17 15:00 Blood Pressure 125/81 05/31/17 15:00 Pulse Oximetry 97 05/31/17 15:00 Oxygen Delivery Method Room Air Weight: 225 lb 8.526 oz Results - Labs CBC & Chem 7: 05/31/17 04:33 05/31/17 04:33 Microbiology Results: Microbiology 05/30/17 12:46 Groin Gram Stain - Final 05/30/17 12:46 Groin Deep Wound Culture - Preliminary Staphylococcus aureus Assessment and Plan Assessment and Plan: 05/30/2017 Impression [place] Severe cellulitis of the right groin, scrotum and penis-cefepime, vancomycin and clindamycin initiated 05/29/2017 Sepsis-with fever, elevated white count, and cellulitis Hyponatremia-sodium improved from 124, now up to 128 on normal saline Mild metabolic acidosis-resolved Chronic iron deficiency anemia despite being on oral iron for over one year Hypertension-currently well controlled despite valsartan and nisoldipine being on hold for recent diagnosis of sepsis Chronic alcohol use (patient states 2-3 beers per day)-no signs or symptoms of withdrawal Easy bruising-with normal INR, PTT and platelet count Plan Discussed this morning with Dr. Cardenas. He did take the patient to the OR today for wide surgical debridement of necrotic skin, subcutaneous tissue and fascia. A large abscess was found. Deep wound cultures were obtained. Continue IV fluids for hyponatremia and recheck tomorrow. Advance diet when okay with Dr. Cardenas Monitor blood pressure and consider restarting nisoldipine Regarding the patient's chronic iron deficiency anemia despite oral iron over one year, consider IV iron when signs of infection have improved. Would also consider EGD and colonoscopy for workup of anemia. Continue Protonix for GI protection considering his alcohol use and chronic anemia. Continue SCDs for DVT prophylaxis. Increase activity as tolerated. Sepsis Assessment - Evaluation Sepsis screening result: No Definite Risk Hospital Course Summary Disclaimer: The visit summary below is not to be considered part of the above Progress Note.
--- NOTE | 2017-05-31 17:10 | Progress Note ---
Subjective: Pt seen in room with Jasmyne from wound care at 13:30. Reports he has no pain in his right groin wound until the packing is removed then he rates it at a level of 10. He enjoyed his lunch- reports he has been NPO intermittently since his admission so this was maybe his second meal. He denies any fever, chills or sweats. No chest pain, he did have a cough on admission which has improved. He is urinating without difficulty, but has not had a BM since admission. Objective Vital signs: Temperature 96.2 F L 05/31/17 15:00 Pulse Rate 72 05/31/17 16:00 Respiratory Rate 20 05/31/17 15:00 Blood Pressure 125/81 05/31/17 15:00 Pulse Oximetry 97 05/31/17 15:00 Oxygen Delivery Method Room Air Selected Entries 05/29/17 16:52 05/30/17 08:00 05/30/17 23:41 Temperature 102.5 F H 99.9 F 98.4 F 05/31/17 03:57 05/31/17 07:39 05/31/17 11:00 Temperature 98.4 F 99.1 F 97.3 F 05/31/17 15:00 Temperature 96.2 F L Laboratory Tests 05/31/17 05/31/17 04:33 04:33 WBC 17.1 H Hgb 8.7 L Hct 25.8 L Plt Count 303 Neutrophils % (Manual) 80.0 H Band Neutrophils % 1.0 Sodium 130 L Potassium 4.1 Chloride 100 Carbon Dioxide 23 Anion Gap 7 BUN 9.0 Creatinine 1.0 Glucose 97 Weight: 225 lb 8.526 oz - Constitutional Present: no acute distress, well nourished, well developed, average body habitus - Routine HEENT Exam Head: Present: normocephalic, atraumatic Eye: Present: conjunctivae pink ENT: Present: mucous membranes moist, oropharynx clear - Routine Respiratory Exam Present: decreased breath sounds, CTA bilaterally. Absent: accessory muscle use , respiratory distress - Routine Cardiovascular Exam Present: RRR, no murmur - Routine Abdominal Exam Present: soft, normoactive bowel sounds, non distended, non tender, wound. Absent: rebound, guarding Comments: In the right groin, there is an area of induration and erythema which was outlined with pen. The packing was removed from the wound in the groin area- with pink granulation tissue and some yellowish debris noted. No drainage, no odor, minimally tender to palpation after the removal of the packing. - Routine Exam Testicular: Right swelling, Right tenderness (mildly) - Routine Extremities Exam Absent: cyanosis, clubbing, edema, vascular access - Routine Musculoskeletal Exam Musculoskeletal: Present: no clubbing or cyanosis, no tenderness - Routine Skin Exam Present: rash. Absent: cyanosis, pallor, petechiae - Routine Psychiatric Exam Present: normal affect, cooperative - Additional findings Additional findings: left IV site clean and dry Results - Labs CBC & Chem 7: 05/31/17 04:33 05/31/17 04:33 Microbiology Results: Microbiology 05/30/17 12:46 Groin Gram Stain - Final 05/30/17 12:46 Groin Deep Wound Culture - Preliminary Staphylococcus aureus Assessment and Plan Assessment and Plan: 05/30/2017 Impression [place] Early nec fasc/Severe cellulitis of the right groin, scrotum and penis- surgical cultures with Staph aureus (gram stain reviewed) and neg BC x2, cefepime, vancomycin and clindamycin initiated 05/29/2017 S/p surgical debridement on 05/30- op note reviewed, findings and plan discussed with Dr. Cardenas Resolved sepsis-initially with fever, elevated white count, now with source control Hyponatremia-sodium improved from 124, now up to 130 on normal saline Mild metabolic acidosis-resolved Chronic iron deficiency anemia despite being on oral iron for over one year Hypertension-currently well controlled despite valsartan and nisoldipine being on hold for recent diagnosis of sepsis Chronic alcohol use (patient states 2-3 beers per day)-no signs or symptoms of withdrawal Easy bruising-with normal INR, PTT and platelet count Plan Discussed with Dr. Cardenas he underwent wide surgical debridement of necrotic skin, subcutaneous tissue and fascia. A large abscess was found. Deep wound cultures were obtained. Will d/c IV fluids. Monitor blood pressure and consider restarting nisoldipine Regarding the patient's chronic iron deficiency anemia despite oral iron over one year, consider IV iron when signs of infection have improved. Would also consider EGD and colonoscopy for workup of anemia. Continue Protonix for GI protection considering his alcohol use and chronic anemia. Continue SCDs for DVT prophylaxis. Increase activity as tolerated. Will D/c cefepime- adjust antibiotics further based on susceptibilites. Will need wound vac post discharge. Sepsis Assessment - Evaluation Sepsis screening result: No Definite Risk Hospital Course Summary Disclaimer: The visit summary below is not to be considered part of the above Progress Note.
--- NOTE | 2017-05-31 19:02 | Progress Note ---
DATE OF SERVICE 05/31/2017 FINDINGS Mr. Cloud states that he is feeling significantly better today. He stated he did have a fair amount of pain earlier today when the dressing was removed. EXAM VITAL SIGNS: Afebrile, normotensive. Current vitals include temperature 96.2, pulse 72, respirations 20, blood pressure 125/81, SAO2 97% on room air. CHEST: Clear to auscultation bilaterally. HEART: Regular rate and rhythm. Normal S1 and S2 without gallops, murmurs or clicks. ABDOMEN: Abdomen is soft, nontender. Attention was focused to the area of concern within the right inguinal region. Wound VAC is currently in place. The erythema is beginning to dissipate but is still present within the right inguinal region. Definitely less induration within the surrounding subcutaneous tissues. No evidence for skin necrosis of the skin edges. Wound bed was evaluated earlier this morning by my nurse practitioner who stated that there was marked improvement but still some fibrinous material within the wound bed but no evidence for progressive necrosis. ASSESSMENT 61-year-old gentleman status post incision and drainage of large scrotal abscess extending into right inguinal region with associated necrosis of subcutaneous tissues and portion of fascia. Intraoperative findings suggestive of early necrotizing fasciitis. Patient currently doing well. PLAN Continue with ongoing antibiotic therapy. Will await deep culture results from yesterday and change antibiotics accordingly. I am pleased with the patient's progress at this time. DEBORAH
[2017-05-31] MEDS: ATORVASTATIN 10 MG TABLET PO SCH (20:24)
[2017-06-01] MEDS: ATORVASTATIN 10 MG TABLET PO SCH ×3 (00:16→21:11)
[2017-06-01] MEDS: CLINDAMYCIN PB 600 MG/50 ML BAG IV SCH ×2 (02:47→09:05)
[2017-06-01] MEDS: HYDROMORPHONE 2 MG/ML INJECTION IVP PRN (02:57)
[2017-06-01] MEDS: PANTOPRAZOLE 40 MG INJECTION IVP SCH (09:08)
[2017-06-01] MEDS: FOLIC ACID 1 MG TABLET PO SCH (09:08)
--- NOTE | 2017-06-01 11:21 | General Surgery Progress Note ---
Subjective Narrative: Patient feels that the penis and scrotum are more edematous this morning than last evening. He reports that after application of wound vac he thought the edema decreased, but is worse again this morning. Wound vac leaked this morning and additional tape applied by wound clinic. He agrees that the erythema in the right inguinal area is decreasing in intensity and area. Denies nausea, chest pain, SOA. W - Vital Signs Last Vital Signs Temp 98.4 F 06/01/17 07:47 Pulse 69 06/01/17 08:07 Resp 16 06/01/17 03:35 BP 143/81 H 06/01/17 07:47 Pulse Ox 92 06/01/17 07:47 - Laboratory Result Diagrams: 06/01/17 04:40 06/01/17 04:40 - Microbiogy Microbiology Microbiology 05/30/17 12:46 Groin Gram Stain - Final 05/30/17 12:46 Groin Deep Wound Culture - Final Staphylococcus aureus, MRSA 05/30/17 12:46 Groin Gram Stain - Final 05/30/17 12:46 Groin Deep Wound Culture - Preliminary Staphylococcus aureus Resistant to Quinalones and Oxicillin. Sensitive to Clindamycin, Vancomycin, Doxycicline, Bactrim - Abnormal Exam Male: other (edema of penis and scrotum appear about the same as yesterday morning when I took out the original gauze packing. 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.) - Normal Exam General: no acute distress Cardiovascular: regular rhythm, regular rate Respiratory: equal bilaterally Abdominal: non-tender Psychiatric: normal affect Wound/Stoma/Drain Assessment - Wound Management Right Perineal Wound Type: Open Wound (right groin wound vac in place, foam compressed and no leak on machine) - Drain Management Anterior Groin Drains Present: negative pressure therapy (Instill vac) Drainage Amount: Moderate Drainage character: serosanguineous Assessment and Plan (1) Abscess of groin, right Current Visit: Yes Status: Acute (2) Cellulitis Current Visit: Yes Status: Acute Qualifiers: Site of cellulitis: other site Qualified Code(s): L03.818 - Cellulitis of other sites (3) Leukocytosis Current Visit: Yes Status: Acute Qualifiers: Leukocytosis type: other Qualified Code(s): D72.828 - Other elevated white blood cell count Plan: Cellulitis improving. WBC remains 14.1 today, (17.1 yesterday) Sensitivity has returned, he is on Cleocin and Vancomycin, appropriate based on report. Conitinue vac changes twice a week and prn. Hospital Course Summary Disclaimer: The visit summary below is not to be considered part of the above Progress Note. Sepsis Assessment - Evaluation Sepsis screening result: No Definite Risk
[2017-06-01] MEDS: MAGNESIUM OXIDE 400 MG TABLET PO SCH (15:54)
--- NOTE | 2017-06-01 16:15 | Progress Note ---
Subjective: The patient was seen at 1510 The patient reports doing well and slept well during the night. Denies fevers , chills, sweats. Denies sore throat, shortness of breath, dyspnea on exertion , cough, sputum production, chest pain. Denies nausea, vomiting, diarrhea or constipation. Is urinating without difficulty, denies dysuria. He is currently sitting up in the chair. He has been passing gas but has not had a bowel movement for the last several days. I discussed this with nursing earlier and we have started him on milk of magnesia when necessary and daily Colace. It's too early for any results from that. He does report that the swelling was better in his genital area when he got up this morning but now is much more swollen however he believes the redness is decreased. He continues to have pain requiring IV pain medication with any manipulation of the wound VAC. He has a history of hypertension and has blood pressure medications at home which he is not on now. I have asked him to have his friend bringing those meds in so we can get him started back on that as well. Objective Vital signs: Temperature 99.2 F 06/01/17 12:18 Pulse Rate 74 06/01/17 12:18 Respiratory Rate 18 06/01/17 12:18 Blood Pressure 161/95 H 06/01/17 12:18 Pulse Oximetry 92 06/01/17 12:18 Oxygen Delivery Method Room Air Selected Entries 05/31/17 07:39 05/31/17 19:00 06/01/17 00:39 Temperature 99.1 F Blood Pressure 143/90 H 139/80 06/01/17 03:35 06/01/17 07:47 06/01/17 12:18 Temperature 99.2 F Blood Pressure 153/91 H 143/81 H 161/95 H Weight: 223 lb 12.307 oz - Additional findings Additional findings: In general, the patient is alert and oriented 3 cooperative with exam and in no respiratory distress HEENT head is atraumatic,normocephalic, no conjunctival petechiae, no oral thrush, mucous membranes are moist and pink Lungs are clear to auscultation without wheezes or crackles CV regular rate and rhythm without murmur He remains on telemetry Abdomen is soft, bowel sounds are present,there is no guarding or rebound Extremities no clubbing, no cyanosis, no edema, no sign of rash, he has slight erythema coursing up his right arm where his previous IV site was is nontender. He has a new IV site in the left antecubital. Neuro patient is alert His area is difficult to examine while sitting in a [place],r he does have a wound VAC in place in the right groin, there is decreased erythema and induration in the area that was previously outlined, he does have marked scrotal and penile swelling however Results - Labs CBC & Chem 7: 06/01/17 04:40 06/01/17 04:40 Labs: Microbiology 05/30/17 12:46 Groin Gram Stain - Final 05/30/17 12:46 Groin Deep Wound Culture - Final Staphylococcus aureus, MRSA 05/29/17 10:59 Peripheral/Iv Start Blood Culture - Preliminary No Growth After 3 Days 05/29/17 10:55 Peripheral/Iv Start Blood Culture - Preliminary No Growth After 3 Days Microbiology Results: Microbiology Assessment and Plan Assessment and Plan: Impression [place] Early nec fasc/Severe cellulitis of the right groin, scrotum and penis- surgical cultures with methicillin-resistant Staph aureus (gram stain reviewed) and neg BC x2, cefepime, vancomycin and clindamycin initiated 05/29/2017 S/p surgical debridement on 05/30- op note reviewed, findings and plan discussed with Dr. Cardenas Resolved sepsis-initially with fever, elevated white count, now with source control Hyponatremia-sodium improved from 124, now up to 130 on normal saline Mild metabolic acidosis-resolved Chronic iron deficiency anemia despite being on oral iron for over one year Chronic hypertension Previously on valsartan and nisoldipine Chronic alcohol use (patient states 2-3 beers per day)-no signs or symptoms of withdrawal Easy bruising-with normal INR, PTT and platelet count Plan Discussed with Dr. Cardenas he underwent wide surgical debridement of necrotic skin, subcutaneous tissue and fascia. A large abscess was found. Deep wound cultures were obtained which isolated MRSA susceptible to clindamycin Monitor blood pressure restart nisoldipine and valsartan Regarding the patient's chronic iron deficiency anemia despite oral iron over one year. Would also consider EGD and colonoscopy for workup of anemia. Continue Protonix for GI protection considering his alcohol use and chronic anemia. Continue SCDs for DVT prophylaxis. Increase activity as tolerated. Will adjust antibiotics further based on susceptibilites-we'll discontinue vancomycin and IV clindamycin and switch over to oral clindamycin.. Will need wound vac post discharge. Sepsis Assessment - Evaluation Sepsis screening result: No Definite Risk Hospital Course Summary Disclaimer: The visit summary below is not to be considered part of the above Progress Note. Hospital Course: 06/01/17 16:26 Early nec fasc/Severe cellulitis of the right groin, scrotum and penis- surgical cultures with methicillin-resistant Staph aureus (gram stain reviewed) and neg BC x2, cefepime, vancomycin and clindamycin initiated 05/29/2017 S/p surgical debridement on 05/30- op note reviewed, findings and plan discussed with Dr. Cardenas Resolved sepsis-initially with fever, elevated white count, now with source control Hyponatremia-sodium improved from 124, now up to 130 on normal saline Mild metabolic acidosis-resolved Chronic iron deficiency anemia despite being on oral iron for over one year Chronic hypertension Previously on valsartan and nisoldipine Chronic alcohol use (patient states 2-3 beers per day)-no signs or symptoms of withdrawal Easy bruising-with normal INR, PTT and platelet count Plan Discussed with Dr. Cardenas he underwent wide surgical debridement of necrotic skin, subcutaneous tissue and fascia. A large abscess was found. Deep wound cultures were obtained which isolated MRSA susceptible to clindamycin Monitor blood pressure restart nisoldipine and valsartan Regarding the patient's chronic iron deficiency anemia despite oral iron over one year. Would also consider EGD and colonoscopy for workup of anemia. Continue Protonix for GI protection considering his alcohol use and chronic anemia. Continue SCDs for DVT prophylaxis. Increase activity as tolerated. Will adjust antibiotics further based on susceptibilites-we'll discontinue vancomycin and IV clindamycin and switch over to oral clindamycin.. Will need wound vac post discharge.
[2017-06-01] MEDS: CLINDAMYCIN 300 MG CAPSULE PO SCH ×2 (18:21→20:38)
[2017-06-01] MEDS ORDERED: SODIUM CHLORIDE IR ONE (19:40)
[2017-06-01] MEDS: HYDROCODONE/APAP 5mg/325mg TABLET PO PRN (20:13)
--- NOTE | 2017-06-01 20:39 | Progress Note ---
DATE OF SERVICE 06/01/2017 FINDINGS Mr. Cloud was in good spirits this evening. He informs me that he had noted that the swelling seemed to have become a little worse today involving his scrotum and his penis. He states that the redness has begun to dissipate slightly. EXAM VITAL SIGNS: Afebrile, normotensive. Current vitals include temperature 98.4 , pulse 71, respirations 18, blood pressure 176/95, SAO2 92% on room air. CHEST: Clear to auscultation bilaterally. HEART: Regular rate and rhythm. Normal S1 and S2 without gallops, murmurs or clicks. ABDOMEN: Attention was focused to the right inguinal region. He does indeed continue to have erythema involving the lower abdomen and inguinal region. It does appear that the erythema has decreased by about 2 cm from the original percutaneous ink johnathon. The scrotum and penis remain to be edematous in nature. Wound VAC is in place and functioning. Skin edges beneath the Steri-Drape do not show any evidence of necrosis. LABORATORY/RADIOGRAPHIC EVALUATION The patient had a CBC today and his white count continues on a downward trend at 14.1. His left shift remains stable at 81%. Hemoglobin overall stable at 8.7. Cultures have returned revealing MRSA. The patient is on clindamycin orally. I have reviewed notes from hospitalist who is an Infectious Disease physician. ASSESSMENT 61-year-old then gentleman with MRSA abscess involving right inguinal/right scrotal region with intraoperative findings suggestive of early necrotizing fasciitis. Overall patient doing well. PLAN Will continue with ongoing antibiotic therapy. Will continue with wound VAC therapy. Will continue to follow closely over the course of the weekend. Hopefully this area of erythema within the inguinal region and lower abdominal wall will begin to dissipate. Patient remains afebrile and is slowly improving from a clinical standpoint. [facility]
[2017-06-02] MEDS: VITAMIN E 1,000 UNIT CAPSULE PO SCH (08:41)
[2017-06-02] MEDS: SALINE FLUSH 10ml SYRINGE IVF PRN (08:41)
[2017-06-02] MEDS: MULTI-VITAMIN PLAIN TABLET PO SCH (08:43)
[2017-06-02] MEDS: PANTOPRAZOLE 40 MG INJECTION IVP SCH (08:43)
[2017-06-02] MEDS: FOLIC ACID 1 MG TABLET PO SCH (08:43)
[2017-06-02] MEDS: CLINDAMYCIN 300 MG CAPSULE PO SCH ×4 (08:43→21:39)
[2017-06-02] MEDS: NISOLDIPINE ER 20 MG TABLET PO SCH (08:44)
[2017-06-02] MEDS: HYDROCODONE/APAP 5mg/325mg TABLET PO PRN (08:44)
[2017-06-02] MEDS: ASCORBIC ACID 500 MG TABLET PO SCH (08:44)
[2017-06-02] MEDS: Valsartan 160 MG TABLET PO SCH (08:44)
[2017-06-02] MEDS: DOCUSATE SODIUM 100 MG CAPSULE PO SCH (08:44)
[2017-06-02] MEDS: OMEGA-3 ACID ESTERS 1 GM CAPSULE PO SCH (08:45)
[2017-06-02] MEDS ORDERED: SAW PALMETTO 160 MG PO SCH (09:00)
[2017-06-02] MEDS ORDERED: FERROUS SULFATE 324 MG TABLET PO SCH (09:00)
--- NOTE | 2017-06-02 11:33 | Progress Note ---
DATE OF SERVICE 06/02/2017 FINDINGS Mr. Cloud today is without complaints. EXAM VITAL SIGNS: Afebrile, normotensive. Last recorded vitals include temperature 98.2, pulse 66, respirations 18, blood pressure 140/88, 140/80. HEENT: Normocephalic. Pupils are equally round and react to light and accommodation. CHEST: Clear to auscultation bilaterally. HEART: Regular rate and rhythm. Normal S1 and S2 without gallops, murmurs or clicks. EXTREMITIES: Attention was focused to the right inguinal region. I am pleased to see today that the marked erythema has improved. The penis and scrotum still remain somewhat edematous but overall stable. LABORATORY/RADIOGRAPHIC EVALUATION The patient's white count continues on a downward trend. White count is 12.6. Hemoglobin is stable at 9.0. ASSESSMENT 61-year-old gentleman status post I&D and excisional surgical debridement of MRSA abscess involving the right inguinal and scrotal region. Intraoperative findings indicative for early necrotizing fasciitis. Patient improving. PLAN Continuation of current care. Will continue with VeraFlo VAC and antibiotics. On Sunday hopefully arrangements will be made for the patient to have a home VAC at that time. Will have wound staff at that time remove VeraFlo VAC and replace with home VAC. Will likely negative wound pressure therapy for the next 7-14 days and then proceed with delayed primary closure once a good granulation bed has begun to form within the wound bed. [facility]
[2017-06-02] MEDS: ZINC GLUCONATE 50 MG TABLET PO SCH (15:00)
--- NOTE | 2017-06-02 16:41 | Progress Note ---
Subjective: The patient was seen at 1630. The patient reports he is doing well and slept well during the night except when he was awoken by his wound VAC. Denies fevers, chills, sweats. Denies shortness of breath, dyspnea on exertion, he does have a cough with clear sputum production, no chest pain. Denies nausea, vomiting, diarrhea or constipation. He did have 1 large bowel movement after milk of magnesia yesterday is urinating without difficulty, denies dysuria. He reports his pain is better. His blood pressure is improved on his home meds. Objective Vital signs: Temperature 98.2 F 06/02/17 11:13 Pulse Rate 76 06/02/17 15:01 Respiratory Rate 18 06/02/17 15:01 Blood Pressure 119/69 06/02/17 15:01 Pulse Oximetry 92 06/02/17 15:01 Oxygen Delivery Method Room Air Selected Entries 06/01/17 20:00 06/02/17 00:05 06/02/17 04:09 Blood Pressure 148/81 H 161/90 H 168/90 H 06/02/17 07:18 06/02/17 11:13 06/02/17 15:01 Blood Pressure 170/90 H 140/80 H 119/69 Weight: 210 lb 8.663 oz - Additional findings Additional findings: In general, the patient is alert and oriented 3 cooperative with exam and in no respiratory distress HEENT head is atraumatic,normocephalic, no conjunctival petechiae, no oral thrush, mucous membranes are moist and pink Lungs are clear to auscultation without wheezes or crackles CV regular rate and rhythm without murmur Abdomen is soft, bowel sounds are present,there is no guarding or rebound Extremities no clubbing, no cyanosis, no edema Skin warm and dry, no sign of rash Neuro patient is alert IV access left forearm clean and dry, the area on his right forearm from his previous heparin lock still shows some erythema but is nontender the outlined area of induration and erythema is markedly improved today in the right groin ,the wound VAC remains in place in the right groin. There is decreased swelling in the scrotum and of his penis compared to yesterday. Results - Labs CBC & Chem 7: 06/02/17 04:04 06/02/17 04:04 Microbiology Results: Microbiology Microbiology 05/30/17 12:46 Groin Gram Stain - Final 05/30/17 12:46 Groin Deep Wound Culture - Final Staphylococcus aureus, MRSA 05/29/17 10:59 Peripheral/Iv Start Blood Culture - Preliminary No Growth After 4 Days 05/29/17 10:55 Peripheral/Iv Start Blood Culture - Preliminary No Growth After 4 Days Assessment and Plan Assessment and Plan: Akbar [place]arg[place] Early nec fasc/Severe cellulitis of the right groin, scrotum and penis- surgical cultures with methicillin-resistant Staph aureus (gram stain reviewed) and neg BC x2, previously received cefepime, vancomycin and clindamycin-now on oral clindamycin S/p surgical debridement on 05/30- Resolved sepsis-initially with fever, elevated white count, now with source control Hyponatremia-sodium improved from 124, now up to 131 Mild metabolic acidosis-resolved Chronic iron deficiency anemia despite being on oral iron for over one year will need further follow-up Chronic hypertension valsartan and nisoldipine restarted Chronic alcohol use (patient states 2-3 beers per day)-no signs or symptoms of withdrawal Easy bruising-with normal INR, PTT and platelet count Plan Continue oral clindamycin patient seems to be responding quite well. Monitor blood pressure which has improved since nisoldipine and valsartan were restarted Regarding the patient's chronic iron deficiency anemia despite oral iron over one year. Would also consider EGD and colonoscopy for workup of anemia perhaps has an outpatient Continue Protonix for GI protection considering his alcohol use and chronic anemia. Have changed it to oral Continue SCDs for DVT prophylaxis. Increase activity as tolerated. Will need wound vac post discharge. Patient should be in contact precautions. Sepsis Assessment - Evaluation Sepsis screening result: No Definite Risk Hospital Course Summary Disclaimer: The visit summary below is not to be considered part of the above Progress Note. Hospital Course: 06/01/17 16:26 Early nec fasc/Severe cellulitis of the right groin, scrotum and penis- surgical cultures with methicillin-resistant Staph aureus (gram stain reviewed) and neg BC x2, cefepime, vancomycin and clindamycin initiated 05/29/2017 S/p surgical debridement on 05/30- op note reviewed, findings and plan discussed with Dr. Cardenas Resolved sepsis-initially with fever, elevated white count, now with source control Hyponatremia-sodium improved from 124, now up to 130 on normal saline Mild metabolic acidosis-resolved Chronic iron deficiency anemia despite being on oral iron for over one year Chronic hypertension Previously on valsartan and nisoldipine Chronic alcohol use (patient states 2-3 beers per day)-no signs or symptoms of withdrawal Easy bruising-with normal INR, PTT and platelet count Plan Discussed with Dr. Cardenas he underwent wide surgical debridement of necrotic skin, subcutaneous tissue and fascia. A large abscess was found. Deep wound cultures were obtained which isolated MRSA susceptible to clindamycin Monitor blood pressure restart nisoldipine and valsartan Regarding the patient's chronic iron deficiency anemia despite oral iron over one year. Would also consider EGD and colonoscopy for workup of anemia. Continue Protonix for GI protection considering his alcohol use and chronic anemia. Continue SCDs for DVT prophylaxis. Increase activity as tolerated. Will adjust antibiotics further based on susceptibilites-we'll discontinue vancomycin and IV clindamycin and switch over to oral clindamycin.. Will need wound vac post discharge. 06/02/17 16:49 Impression [place] Early nec fasc/Severe cellulitis of the right groin, scrotum and penis- surgical cultures with methicillin-resistant Staph aureus (gram stain reviewed) and neg BC x2, previously received cefepime, vancomycin and clindamycin-now on oral clindamycin S/p surgical debridement on 05/30- Resolved sepsis-initially with fever, elevated white count, now with source control Hyponatremia-sodium improved from 124, now up to 131 Mild metabolic acidosis-resolved Chronic iron deficiency anemia despite being on oral iron for over one year will need further follow-up Chronic hypertension valsartan and nisoldipine restarted Chronic alcohol use (patient states 2-3 beers per day)-no signs or symptoms of withdrawal Easy bruising-with normal INR, PTT and platelet count Plan Continue oral clindamycin patient seems to be responding quite well. Monitor blood pressure which has improved since nisoldipine and valsartan were restarted Regarding the patient's chronic iron deficiency anemia despite oral iron over one year. Would also consider EGD and colonoscopy for workup of anemia perhaps has an outpatient Continue Protonix for GI protection considering his alcohol use and chronic anemia. Have changed it to oral Continue SCDs for DVT prophylaxis. Increase activity as tolerated. Will need wound vac post discharge. Patient should be in contact precautions.
[2017-06-02] MEDS: ATORVASTATIN 10 MG TABLET PO SCH (21:39)
[2017-06-03] MEDS: PANTOPRAZOLE 40 MG TABLET PO SCH (05:56)
[2017-06-03] MEDS: CLINDAMYCIN 300 MG CAPSULE PO SCH ×4 (09:10→21:34)
[2017-06-03] MEDS: FOLIC ACID 1 MG TABLET PO SCH (09:11)
[2017-06-03] MEDS: MULTI-VITAMIN PLAIN TABLET PO SCH (09:11)
[2017-06-03] MEDS: FERROUS SULFATE 324 MG TABLET PO SCH (09:11)
[2017-06-03] MEDS: DOCUSATE SODIUM 100 MG CAPSULE PO SCH (09:11)
[2017-06-03] MEDS: VITAMIN E 1,000 UNIT CAPSULE PO SCH (09:11)
[2017-06-03] MEDS: OMEGA-3 ACID ESTERS 1 GM CAPSULE PO SCH (09:11)
[2017-06-03] MEDS: Valsartan 160 MG TABLET PO SCH (09:11)
[2017-06-03] MEDS: NISOLDIPINE ER 20 MG TABLET PO SCH (09:12)
[2017-06-03] MEDS: ASCORBIC ACID 500 MG TABLET PO SCH (09:12)
--- NOTE | 2017-06-03 13:22 | Progress Note ---
Subjective: The patient was seen 12:50 at with the nurse at bedside. The patient reports doing well and slept well during the night. He is concerned about the functioning of the wound vac- the nurses have checked it several times. He has occasional pain in his right groin where the wound VAC is with palpation. Denies fevers, chills, sweats. Denies sore throat, shortness of breath, dyspnea on exertion, cough, sputum production, chest pain. Denies nausea , vomiting or diarrhea. Is urinating without difficulty, denies dysuria. Objective Vital signs: Temperature 98.2 F 06/03/17 12:17 Pulse Rate 72 06/03/17 12:17 Respiratory Rate 20 06/03/17 12:17 Blood Pressure 111/65 06/03/17 12:17 Pulse Oximetry 91 06/03/17 12:17 Oxygen Delivery Method Room Air Microbiology 05/30/17 12:46 Groin Gram Stain - Final 05/30/17 12:46 Groin Deep Wound Culture - Final Staphylococcus aureus, MRSA 05/29/17 10:59 Peripheral/Iv Start Blood Culture - Preliminary No Growth After 4 Days 05/29/17 10:55 Peripheral/Iv Start Blood Culture - Preliminary No Growth After 4 Days Selected Entries 06/02/17 00:05 06/02/17 04:09 06/02/17 07:18 Temperature Blood Pressure 161/90 H 168/90 H 170/90 H 06/02/17 11:13 06/02/17 15:01 06/02/17 19:41 Temperature Blood Pressure 140/80 H 119/69 118/65 06/02/17 23:45 06/03/17 03:59 06/03/17 08:15 Temperature 98.8 F Blood Pressure 147/86 H 159/83 H 160/92 H 06/03/17 12:17 Temperature 98.2 F Blood Pressure 111/65 Weight: 202 lb 6.15 oz - Additional findings Additional findings: In general, the patient is alert and oriented 3, cooperative with exam, and in no respiratory distress. HEENT: Head is atraumatic, normocephalic, no conjunctival petechiae, no oral thrush, mucous membranes are moist and pink. Lungs: Clear to auscultation without wheezes, crackles or rhonchi CV: Regular rate and rhythm without murmur Abdomen: Soft, nontender, bowel sounds are present, there is no guarding no rebound. Extremities: No clubbing, no cyanosis, no edema. Skin: Warm and dry no sign of rash Neuro: Patient is alert / right groin with wound vac in place, minimal erythema, no induration of outlined skin. Minimal scrotal swelling. IV access: Left forearm-access is clean and dry. The phlebitis from his right forearm IV site has resolved. Results - Labs CBC & Chem 7: 06/03/17 04:05 06/03/17 04:05 Microbiology Results: Microbiology Microbiology 05/30/17 12:46 Groin Gram Stain - Final 05/30/17 12:46 Groin Deep Wound Culture - Final Staphylococcus aureus, MRSA 05/29/17 10:59 Peripheral/Iv Start Blood Culture - Final No Growth After 5 Days 05/29/17 10:55 Peripheral/Iv Start Blood Culture - Final No Growth After 5 Days \ Laboratory Tests 05/29/17 06/02/17 06/03/17 11:00 04:04 04:05 Plt Count 301 403 H 496 H Assessment and Plan Assessment and Plan: Impression [place] Early nec fasc/Severe cellulitis of the right groin, scrotum and penis- surgical cultures with methicillin-resistant Staph aureus (gram stain reviewed) and neg BC x2, previously received cefepime, vancomycin and clindamycin-now on oral clindamycin S/p surgical debridement on 05/30- Resolved sepsis-initially with fever, elevated white count, now with source control Hyponatremia-sodium improved from 124, now up to 133 Mild metabolic acidosis-resolved Chronic iron deficiency anemia despite being on oral iron for over one year will need further follow-up Chronic hypertension valsartan and nisoldipine restarted Chronic alcohol use (patient states 2-3 beers per day)-no signs or symptoms of withdrawal Easy bruising-with normal INR, PTT and platelet count Plan Continue oral clindamycin Monitor blood pressure which has improved since nisoldipine and valsartan were restarted EGD and colonoscopy for workup of anemia as an outpatient Continue Protonix for GI protection considering his alcohol use and chronic anemia. Have changed it to oral yesterday Continue SCDs for DVT prophylaxis. Increase activity as tolerated. Will need wound vac post discharge. Patient should be in contact precautions. Hope to discharge early next week with wound vac. Sepsis Assessment - Evaluation Sepsis screening result: No Definite Risk Hospital Course Summary Disclaimer: The visit summary below is not to be considered part of the above Progress Note. Hospital Course: 06/01/17 16:26 Early nec fasc/Severe cellulitis of the right groin, scrotum and penis- surgical cultures with methicillin-resistant Staph aureus (gram stain reviewed) and neg BC x2, cefepime, vancomycin and clindamycin initiated 05/29/2017 S/p surgical debridement on 05/30- op note reviewed, findings and plan discussed with Dr. Cardenas Resolved sepsis-initially with fever, elevated white count, now with source control Hyponatremia-sodium improved from 124, now up to 130 on normal saline Mild metabolic acidosis-resolved Chronic iron deficiency anemia despite being on oral iron for over one year Chronic hypertension Previously on valsartan and nisoldipine Chronic alcohol use (patient states 2-3 beers per day)-no signs or symptoms of withdrawal Easy bruising-with normal INR, PTT and platelet count Plan Discussed with Dr. Cardenas he underwent wide surgical debridement of necrotic skin, subcutaneous tissue and fascia. A large abscess was found. Deep wound cultures were obtained which isolated MRSA susceptible to clindamycin Monitor blood pressure restart nisoldipine and valsartan Regarding the patient's chronic iron deficiency anemia despite oral iron over one year. Would also consider EGD and colonoscopy for workup of anemia. Continue Protonix for GI protection considering his alcohol use and chronic anemia. Continue SCDs for DVT prophylaxis. Increase activity as tolerated. Will adjust antibiotics further based on susceptibilites-we'll discontinue vancomycin and IV clindamycin and switch over to oral clindamycin.. Will need wound vac post discharge. 06/02/17 16:49 Impression [place] Early nec fasc/Severe cellulitis of the right groin, scrotum and penis- surgical cultures with methicillin-resistant Staph aureus (gram stain reviewed) and neg BC x2, previously received cefepime, vancomycin and clindamycin-now on oral clindamycin S/p surgical debridement on 05/30- Resolved sepsis-initially with fever, elevated white count, now with source control Hyponatremia-sodium improved from 124, now up to 131 Mild metabolic acidosis-resolved Chronic iron deficiency anemia despite being on oral iron for over one year will need further follow-up Chronic hypertension valsartan and nisoldipine restarted Chronic alcohol use (patient states 2-3 beers per day)-no signs or symptoms of withdrawal Easy bruising-with normal INR, PTT and platelet count Plan Continue oral clindamycin patient seems to be responding quite well. Monitor blood pressure which has improved since nisoldipine and valsartan were restarted Regarding the patient's chronic iron deficiency anemia despite oral iron over one year. Would also consider EGD and colonoscopy for workup of anemia perhaps has an outpatient Continue Protonix for GI protection considering his alcohol use and chronic anemia. Have changed it to oral Continue SCDs for DVT prophylaxis. Increase activity as tolerated. Will need wound vac post discharge. Patient should be in contact precautions. 06/03/17 13:56 Early nec fasc/Severe cellulitis of the right groin, scrotum and penis- surgical cultures with methicillin-resistant Staph aureus (gram stain reviewed) and neg BC x2, previously received cefepime, vancomycin and clindamycin-now on oral clindamycin S/p surgical debridement on 05/30- Resolved sepsis-initially with fever, elevated white count, now with source control Hyponatremia-sodium improved from 124, now up to 133 Mild metabolic acidosis-resolved Chronic iron deficiency anemia despite being on oral iron for over one year will need further follow-up Chronic hypertension valsartan and nisoldipine restarted Chronic alcohol use (patient states 2-3 beers per day)-no signs or symptoms of withdrawal Easy bruising-with normal INR, PTT and platelet count Plan Continue oral clindamycin Monitor blood pressure which has improved since nisoldipine and valsartan were restarted EGD and colonoscopy for workup of anemia as an outpatient Continue Protonix for GI protection considering his alcohol use and chronic anemia. Have changed it to oral yesterday Continue SCDs for DVT prophylaxis. Increase activity as tolerated. Will need wound vac post discharge. Patient should be in contact precautions. Hope to discharge early next week with wound vac.
[2017-06-03] MEDS: HYDROCODONE/APAP 5mg/325mg TABLET PO PRN (13:25)
[2017-06-03] MEDS: ATORVASTATIN 10 MG TABLET PO SCH (21:34)
[2017-06-04] MEDS: PANTOPRAZOLE 40 MG TABLET PO SCH (05:35)
[2017-06-04] MEDS: CLINDAMYCIN 300 MG CAPSULE PO SCH ×4 (09:47→21:08)
[2017-06-04] MEDS: VITAMIN E 1,000 UNIT CAPSULE PO SCH (09:47)
[2017-06-04] MEDS: OMEGA-3 ACID ESTERS 1 GM CAPSULE PO SCH (09:48)
[2017-06-04] MEDS: MULTI-VITAMIN PLAIN TABLET PO SCH (09:48)
[2017-06-04] MEDS: FOLIC ACID 1 MG TABLET PO SCH (09:48)
[2017-06-04] MEDS: NISOLDIPINE ER 20 MG TABLET PO SCH (09:48)
[2017-06-04] MEDS: FERROUS SULFATE 324 MG TABLET PO SCH (09:48)
[2017-06-04] MEDS: Valsartan 160 MG TABLET PO SCH (09:48)
[2017-06-04] MEDS: ASCORBIC ACID 500 MG TABLET PO SCH (09:52)
[2017-06-04] MEDS: DOCUSATE SODIUM 100 MG CAPSULE PO SCH (09:53)
[2017-06-04] MEDS: HYDROCODONE/APAP 5mg/325mg TABLET PO PRN (11:21)
[2017-06-04] MEDS: HYDROMORPHONE 2 MG/ML INJECTION IVP PRN (12:49)
--- NOTE | 2017-06-04 15:41 | Wound Care Progress Note ---
Wound Management - Wound Right Medial Groin Wound Present on Admission?: Yes Length: 12.2 Width: 3 Depth: 2.2 Wound Bed Appearance: Beefy Red Ewa Wound Appearance: Well Defined Tunneling: No Undermining: No Drainage Description: Serosanguineous Drainage Amount: Moderate Drainage Odor: No Odor Dressing Status: Changed Irrigant Solution: Saline Irrigant Packing Type: Woundvac Sponge Number of Packing Pieces Removed?: 3 Number of Packing Pieces Placed?: 1 Secondary Dressing: Transparent Drape, Foam Dressing Dressing Change Date: 06/04/17 Dressing Change Time: 12:30 Dressing Change Patient Tolerance: Tolerated Well
[2017-06-04] MEDS: MAGNESIUM OXIDE 400 MG TABLET PO SCH (16:34)
--- NOTE | 2017-06-04 17:05 | Progress Note ---
Subjective: The patient was seen 14:50. The patient reports doing ok and slept well during the night. He was given oral [place] before his wound VAC changed this morning. Unfortunately, as Jasmyne from wound team was removing the wound VAC the patient develops severe pain requiring IV pain medication which will preclude his discharge today.. Denies fevers, chills, sweats. Denies sore throat, shortness of breath, dyspnea on exertion, cough, sputum production, chest pain. Denies nausea, vomiting or diarrhea. Is urinating without difficulty, denies dysuria. Objective Vital signs: Temperature 96.3 F L 06/04/17 15:58 Pulse Rate 66 06/04/17 15:58 Respiratory Rate 20 06/04/17 15:58 Blood Pressure 121/77 06/04/17 15:58 Pulse Oximetry 97 06/04/17 15:58 Oxygen Delivery Method Room Air Selected Entries 06/03/17 15:43 06/03/17 20:00 06/03/17 23:25 Blood Pressure 132/73 141/86 H 143/85 H 06/04/17 04:06 06/04/17 08:05 06/04/17 15:58 Blood Pressure 150/88 H 175/98 H 121/77 Weight: 202 lb 6.15 oz - Additional findings Additional findings: In general, the patient is sleeping quietly, awakens easily- alert and oriented 3, cooperative with exam, and in no respiratory distress. HEENT: Head is atraumatic, normocephalic, no conjunctival petechiae, no oral thrush, mucous membranes are moist and pink. Lungs: Clear to auscultation without wheezes, crackles or rhonchi CV: Regular rate and rhythm without murmur Abdomen: Soft, nontender, bowel sounds are present, there is no guarding no rebound. Extremities: No clubbing, no cyanosis, no edema. Skin: Warm and dry no sign of rash Neuro: Patient is alert IV access: Left arm Resolving phlebitis of right arm the right groin area has a wound VAC in place there is markedly resolved erythema and no induration of bowel and skin no scrotal swelling. Results - Labs CBC & Chem 7: 06/04/17 04:05 06/04/17 04:05 Microbiology Results: Microbiology 05/30/17 12:46 Groin Gram Stain - Final 05/30/17 12:46 Groin Deep Wound Culture - Final Staphylococcus aureus, MRSA Assessment and Plan Assessment and Plan: Akbar Vargas Early nec fasc/Severe cellulitis of the right groin, scrotum and penis- surgical cultures with methicillin-resistant Staph aureus (gram stain reviewed) and neg BC x2, previously received cefepime, vancomycin and clindamycin-now on oral clindamycin since June 01 S/p surgical debridement on 05/30- Resolved sepsis-initially with fever, elevated white count, now with source control Hyponatremia-sodium improved from 124, stable 133 Mild metabolic acidosis-resolved Chronic iron deficiency anemia despite being on oral iron for over one year will need further follow-up Chronic hypertension valsartan and nisoldipine restarted, blood pressure still occasionally elevated Chronic alcohol use (patient states 2-3 beers per day)-no signs or symptoms of withdrawal Easy bruising-with normal INR, PTT and platelet count Plan Continue oral clindamycin Unfortunately the patient is unable to tolerate wound VAC changes with oral pain medications. At this time we'll keep him in the hospital with IV medication prior to his wound VAC changes. When I discussed the care with Dr. Cardenas on Sunday, he suggested the patient may be able to have a primary closure of his wound next week. Monitor blood pressure which has improved since nisoldipine and valsartan were restarted EGD and colonoscopy for workup of anemia as an outpatient Continue Protonix for GI protection considering his alcohol use and chronic anemia. Continue SCDs for DVT prophylaxis. Increase activity as tolerated. Patient maintains in contact precautions. Sepsis Assessment - Evaluation Sepsis screening result: No Definite Risk Hospital Course Summary Disclaimer: The visit summary below is not to be considered part of the above Progress Note. Hospital Course: 06/01/17 16:26 Early nec fasc/Severe cellulitis of the right groin, scrotum and penis- surgical cultures with methicillin-resistant Staph aureus (gram stain reviewed) and neg BC x2, cefepime, vancomycin and clindamycin initiated 05/29/2017 S/p surgical debridement on 05/30- op note reviewed, findings and plan discussed with Dr. Cardenas Resolved sepsis-initially with fever, elevated white count, now with source control Hyponatremia-sodium improved from 124, now up to 130 on normal saline Mild metabolic acidosis-resolved Chronic iron deficiency anemia despite being on oral iron for over one year Chronic hypertension Previously on valsartan and nisoldipine Chronic alcohol use (patient states 2-3 beers per day)-no signs or symptoms of withdrawal Easy bruising-with normal INR, PTT and platelet count Plan Discussed with Dr. Cardenas he underwent wide surgical debridement of necrotic skin, subcutaneous tissue and fascia. A large abscess was found. Deep wound cultures were obtained which isolated MRSA susceptible to clindamycin Monitor blood pressure restart nisoldipine and valsartan Regarding the patient's chronic iron deficiency anemia despite oral iron over one year. Would also consider EGD and colonoscopy for workup of anemia. Continue Protonix for GI protection considering his alcohol use and chronic anemia. Continue SCDs for DVT prophylaxis. Increase activity as tolerated. Will adjust antibiotics further based on susceptibilites-we'll discontinue vancomycin and IV clindamycin and switch over to oral clindamycin.. Will need wound vac post discharge. 06/02/17 16:49 Impression [place] Early nec fasc/Severe cellulitis of the right groin, scrotum and penis- surgical cultures with methicillin-resistant Staph aureus (gram stain reviewed) and neg BC x2, previously received cefepime, vancomycin and clindamycin-now on oral clindamycin S/p surgical debridement on 05/30- Resolved sepsis-initially with fever, elevated white count, now with source control Hyponatremia-sodium improved from 124, now up to 131 Mild metabolic acidosis-resolved Chronic iron deficiency anemia despite being on oral iron for over one year will need further follow-up Chronic hypertension valsartan and nisoldipine restarted Chronic alcohol use (patient states 2-3 beers per day)-no signs or symptoms of withdrawal Easy bruising-with normal INR, PTT and platelet count Plan Continue oral clindamycin patient seems to be responding quite well. Monitor blood pressure which has improved since nisoldipine and valsartan were restarted Regarding the patient's chronic iron deficiency anemia despite oral iron over one year. Would also consider EGD and colonoscopy for workup of anemia perhaps has an outpatient Continue Protonix for GI protection considering his alcohol use and chronic anemia. Have changed it to oral Continue SCDs for DVT prophylaxis. Increase activity as tolerated. Will need wound vac post discharge. Patient should be in contact precautions. 06/03/17 13:56 Early nec fasc/Severe cellulitis of the right groin, scrotum and penis- surgical cultures with methicillin-resistant Staph aureus (gram stain reviewed) and neg BC x2, previously received cefepime, vancomycin and clindamycin-now on oral clindamycin S/p surgical debridement on 05/30- Resolved sepsis-initially with fever, elevated white count, now with source control Hyponatremia-sodium improved from 124, now up to 133 Mild metabolic acidosis-resolved Chronic iron deficiency anemia despite being on oral iron for over one year will need further follow-up Chronic hypertension valsartan and nisoldipine restarted Chronic alcohol use (patient states 2-3 beers per day)-no signs or symptoms of withdrawal Easy bruising-with normal INR, PTT and platelet count Plan Continue oral clindamycin Monitor blood pressure which has improved since nisoldipine and valsartan were restarted EGD and colonoscopy for workup of anemia as an outpatient Continue Protonix for GI protection considering his alcohol use and chronic anemia. Have changed it to oral yesterday Continue SCDs for DVT prophylaxis. Increase activity as tolerated. Will need wound vac post discharge. Patient should be in contact precautions. Hope to discharge early next week with wound vac. 06/04/17 17:20 Early nec fasc/Severe cellulitis of the right groin, scrotum and penis- surgical cultures with methicillin-resistant Staph aureus (gram stain reviewed) and neg BC x2, previously received cefepime, vancomycin and clindamycin-now on oral clindamycin since June 01 S/p surgical debridement on 05/30- Resolved sepsis-initially with fever, elevated white count, now with source control Hyponatremia-sodium improved from 124, stable 133 Mild metabolic acidosis-resolved Chronic iron deficiency anemia despite being on oral iron for over one year will need further follow-up Chronic hypertension valsartan and nisoldipine restarted, blood pressure still occasionally elevated Chronic alcohol use (patient states 2-3 beers per day)-no signs or symptoms of withdrawal Easy bruising-with normal INR, PTT and platelet count Plan Continue oral clindamycin Unfortunately the patient is unable to tolerate wound VAC changes with oral pain medications. At this time we'll keep him in the hospital with IV medication prior to his wound VAC changes. When I discussed the care with Dr. Cardenas on Sunday, he suggested the patient may be able to have a primary closure of his wound next week. Monitor blood pressure which has improved since nisoldipine and valsartan were restarted EGD and colonoscopy for workup of anemia as an outpatient Continue Protonix for GI protection considering his alcohol use and chronic anemia. Continue SCDs for DVT prophylaxis. Increase activity as tolerated. Patient maintains in contact precautions.
[2017-06-04] MEDS: ATORVASTATIN 10 MG TABLET PO SCH (21:08)
[2017-06-04] MEDS: SALINE FLUSH 10ml SYRINGE IVF PRN (21:11)
[2017-06-05] MEDS: PANTOPRAZOLE 40 MG TABLET PO SCH (06:08)
[2017-06-05] MEDS: CLINDAMYCIN 300 MG CAPSULE PO SCH ×4 (08:42→21:10)
[2017-06-05] MEDS: VITAMIN E 1,000 UNIT CAPSULE PO SCH (08:42)
[2017-06-05] MEDS: MULTI-VITAMIN PLAIN TABLET PO SCH (08:43)
[2017-06-05] MEDS: NISOLDIPINE ER 20 MG TABLET PO SCH (08:43)
[2017-06-05] MEDS: Valsartan 160 MG TABLET PO SCH (08:43)
[2017-06-05] MEDS: FERROUS SULFATE 324 MG TABLET PO SCH (08:43)
[2017-06-05] MEDS: OMEGA-3 ACID ESTERS 1 GM CAPSULE PO SCH (08:44)
[2017-06-05] MEDS: FOLIC ACID 1 MG TABLET PO SCH (08:44)
[2017-06-05] MEDS: ASCORBIC ACID 500 MG TABLET PO SCH (09:09)
--- NOTE | 2017-06-05 14:51 | Progress Note ---
<Lilibeth Benz - Last Filed: 06/07/17 15:58> Subjective: Patient is seen in follow-up today. Overall he reports he is feeling well. He still has significant pain with dressing change, but no pain otherwise. With dressing change yesterday he required [place] and IV Dilaudid. He states he had a leak with his wound VAC and it was "patched" earlier this morning, but he feels that it has already "blown out" again as he has had leakage onto his bed sheet. His white blood cell count continues to trend downward. He is afebrile. Objective Vital signs: Temperature 96.8 F 06/05/17 11:33 Pulse Rate 64 06/05/17 11:33 Respiratory Rate 16 06/05/17 11:33 Blood Pressure 135/73 06/05/17 11:33 Pulse Oximetry 96 06/05/17 11:33 Oxygen Delivery Method Room Air Weight: 91.5 kg - Constitutional Present: no acute distress, well nourished, well developed - Routine HEENT Exam Head: Present: normocephalic, atraumatic Eye: Present: EOMI ENT: Present: mucous membranes moist - Routine Respiratory Exam Present: CTA bilaterally. Absent: wheezes - Routine Cardiovascular Exam Present: RRR, S1, S2. Absent: murmur - Routine Abdominal Exam Present: soft, normoactive bowel sounds, non distended. Absent: tenderness - Routine Exam Patient deferred: scrotal exam (nontender, mild erythema.), groin exam (wound VAC is in place in the right groin. Erythema has receded from the previous outlined markings.) - Routine Extremities Exam Present: no edema, normal capillary refill - Routine Skin Exam Present: dry, warm - Routine Neurological Exam Present: alert, oriented X3, CN II-XII intact - Routine Lymphatic Exam Lymphatic: Absent: adenopathy - Routine Psychiatric Exam Present: normal affect Results - Labs CBC & Chem 7: 06/06/17 04:32 06/04/17 04:05 Microbiology Results: Microbiology 05/30/17 12:46 Groin Gram Stain - Final 05/30/17 12:46 Groin Deep Wound Culture - Final Staphylococcus aureus, MRSA Assessment and Plan Assessment and Plan: Impression Early nec fasc/Severe cellulitis of the right groin, scrotum and penis- surgical cultures with methicillin-resistant Staph aureus (gram stain reviewed) and neg BC x2, previously received cefepime, vancomycin and clindamycin-now on oral clindamycin since June 01. S/p surgical debridement on 05/30- Resolved sepsis-initially with fever, elevated white count, now with source control Hyponatremia-sodium improved from 124, stable 133 Chronic hypertension - continues on valsartan and nisoldipine restarted, blood pressure still occasionally elevated Chronic alcohol use (patient states 2-3 beers per day)-no signs or symptoms of withdrawal Easy bruising-with normal INR, PTT and platelet count Plan Continue oral clindamycin Patient is unable to tolerate wound VAC changes with oral pain medications. Will discuss with family caseworker to determine if he is candidate for swing bed care. Dr. Vargas had discussed patient's care with Dr. Cardenas on 06/03/17. He suggested the patient may be able to have a primary closure of his wound next week. Continue to monitor blood pressure Continue Protonix for GI protection considering his alcohol use and chronic anemia. Continue SCDs for DVT prophylaxis. Increase activity as tolerated. Patient maintains in contact precautions. Sepsis Assessment - Evaluation Sepsis screening result: No Definite Risk Hospital Course Summary Disclaimer: The visit summary below is not to be considered part of the above Progress Note. Hospital Course: 06/01/17 16:26 Early nec fasc/Severe cellulitis of the right groin, scrotum and penis- surgical cultures with methicillin-resistant Staph aureus (gram stain reviewed) and neg BC x2, cefepime, vancomycin and clindamycin initiated 05/29/2017 S/p surgical debridement on 05/30- op note reviewed, findings and plan discussed with Dr. Cardenas Resolved sepsis-initially with fever, elevated white count, now with source control Hyponatremia-sodium improved from 124, now up to 130 on normal saline Mild metabolic acidosis-resolved Chronic iron deficiency anemia despite being on oral iron for over one year Chronic hypertension Previously on valsartan and nisoldipine Chronic alcohol use (patient states 2-3 beers per day)-no signs or symptoms of withdrawal Easy bruising-with normal INR, PTT and platelet count Plan Discussed with Dr. Cardenas he underwent wide surgical debridement of necrotic skin, subcutaneous tissue and fascia. A large abscess was found. Deep wound cultures were obtained which isolated MRSA susceptible to clindamycin Monitor blood pressure restart nisoldipine and valsartan Regarding the patient's chronic iron deficiency anemia despite oral iron over one year. Would also consider EGD and colonoscopy for workup of anemia. Continue Protonix for GI protection considering his alcohol use and chronic anemia. Continue SCDs for DVT prophylaxis. Increase activity as tolerated. Will adjust antibiotics further based on susceptibilites-we'll discontinue vancomycin and IV clindamycin and switch over to oral clindamycin.. Will need wound vac post discharge. 06/02/17 16:49 Impression [place] Early nec fasc/Severe cellulitis of the right groin, scrotum and penis- surgical cultures with methicillin-resistant Staph aureus (gram stain reviewed) and neg BC x2, previously received cefepime, vancomycin and clindamycin-now on oral clindamycin S/p surgical debridement on 05/30- Resolved sepsis-initially with fever, elevated white count, now with source control Hyponatremia-sodium improved from 124, now up to 131 Mild metabolic acidosis-resolved Chronic iron deficiency anemia despite being on oral iron for over one year will need further follow-up Chronic hypertension valsartan and nisoldipine restarted Chronic alcohol use (patient states 2-3 beers per day)-no signs or symptoms of withdrawal Easy bruising-with normal INR, PTT and platelet count Plan Continue oral clindamycin patient seems to be responding quite well. Monitor blood pressure which has improved since nisoldipine and valsartan were restarted Regarding the patient's chronic iron deficiency anemia despite oral iron over one year. Would also consider EGD and colonoscopy for workup of anemia perhaps has an outpatient Continue Protonix for GI protection considering his alcohol use and chronic anemia. Have changed it to oral Continue SCDs for DVT prophylaxis. Increase activity as tolerated. Will need wound vac post discharge. Patient should be in contact precautions. 06/03/17 13:56 Early nec fasc/Severe cellulitis of the right groin, scrotum and penis- surgical cultures with methicillin-resistant Staph aureus (gram stain reviewed) and neg BC x2, previously received cefepime, vancomycin and clindamycin-now on oral clindamycin S/p surgical debridement on 05/30- Resolved sepsis-initially with fever, elevated white count, now with source control Hyponatremia-sodium improved from 124, now up to 133 Mild metabolic acidosis-resolved Chronic iron deficiency anemia despite being on oral iron for over one year will need further follow-up Chronic hypertension valsartan and nisoldipine restarted Chronic alcohol use (patient states 2-3 beers per day)-no signs or symptoms of withdrawal Easy bruising-with normal INR, PTT and platelet count Plan Continue oral clindamycin Monitor blood pressure which has improved since nisoldipine and valsartan were restarted EGD and colonoscopy for workup of anemia as an outpatient Continue Protonix for GI protection considering his alcohol use and chronic anemia. Have changed it to oral yesterday Continue SCDs for DVT prophylaxis. Increase activity as tolerated. Will need wound vac post discharge. Patient should be in contact precautions. Hope to discharge early next week with wound vac. 06/04/17 17:20 Early nec fasc/Severe cellulitis of the right groin, scrotum and penis- surgical cultures with methicillin-resistant Staph aureus (gram stain reviewed) and neg BC x2, previously received cefepime, vancomycin and clindamycin-now on oral clindamycin since June 01 S/p surgical debridement on 05/30- Resolved sepsis-initially with fever, elevated white count, now with source control Hyponatremia-sodium improved from 124, stable 133 Mild metabolic acidosis-resolved Chronic iron deficiency anemia despite being on oral iron for over one year will need further follow-up Chronic hypertension valsartan and nisoldipine restarted, blood pressure still occasionally elevated Chronic alcohol use (patient states 2-3 beers per day)-no signs or symptoms of withdrawal Easy bruising-with normal INR, PTT and platelet count Plan Continue oral clindamycin Unfortunately the patient is unable to tolerate wound VAC changes with oral pain medications. At this time we'll keep him in the hospital with IV medication prior to his wound VAC changes. When I discussed the care with Dr. Cardenas on Sunday, he suggested the patient may be able to have a primary closure of his wound next week. Monitor blood pressure which has improved since nisoldipine and valsartan were restarted EGD and colonoscopy for workup of anemia as an outpatient Continue Protonix for GI protection considering his alcohol use and chronic anemia. Continue SCDs for DVT prophylaxis. Increase activity as tolerated. Patient maintains in contact precautions. <Swapna Caballero - Last Filed: 06/07/17 17:20> Objective Vital signs: Temperature 97.5 F 06/05/17 15:50 Pulse Rate 80 06/05/17 15:50 Respiratory Rate 16 06/05/17 15:50 Blood Pressure 115/69 06/05/17 15:50 Pulse Oximetry 95 06/05/17 15:50 Oxygen Delivery Method Room Air Results - Labs CBC & Chem 7: 06/06/17 04:32 06/04/17 04:05 Microbiology Results: Microbiology 05/30/17 12:46 Groin Gram Stain - Final 05/30/17 12:46 Groin Deep Wound Culture - Final Staphylococcus aureus, MRSA Assessment and Plan Assessment and Plan: I have independently evaluated and examined this patient. I reviewed the chart, the patient's history, and the ASSEMBLER ENGINE/PA's documented findings as above. We discussed and formulated the assessment and plan as above with additions as below: Nate reports doing well. He denied chest pain, hypertension, or dyspnea. His only concern is pain control with wound VAC changes and ongoing leak of the back. Oral intake is good and he denied nausea/vomiting. Respirations are nonlabored with good airflow and clear breath sounds Cardiac rhythm regular with normal S1 and S2 Telemetry strips reviewed-consistently sinus rhythm-discontinue. Wound VAC discussed with wound VAC nurse, being converted to simple vac from installation vac. Will add IV iron while hospitalized due to persistent iron deficiency anemia despite chronic oral replacement. Further outpatient evaluation anticipated. Hospital Course Summary Disclaimer: The visit summary below is not to be considered part of the above Progress Note. Hospital Course: 05/30/17 Discussed this morning with Dr. Cardenas. He did take the patient to the OR today for wide surgical debridement of necrotic skin, subcutaneous tissue and fascia. A large abscess was found. Deep wound cultures were obtained. Continue IV fluids for hyponatremia and recheck tomorrow. Advance diet when okay with Dr. Cardenas Monitor blood pressure and consider restarting nisoldipine Regarding the patient's chronic iron deficiency anemia despite oral iron over one year, consider IV iron when signs of infection have improved. Would also consider EGD and colonoscopy for workup of anemia. Continue Protonix for GI protection considering his alcohol use and chronic anemia. 05/31/17 IV fluids discontinued, nisoldipine resumed. Cefepime discontinued-sensitivities pending to permit further adjustment of antibiotics. 06/01/17 Early nec fasc/Severe cellulitis of the right groin, scrotum and penis- surgical cultures with methicillin-resistant Staph aureus (gram stain reviewed) and neg BC x2, cefepime, vancomycin and clindamycin initiated 05/29/2017 - converted to oral clindamycin with discontinuation of IV antibiotics Hyponatremia-sodium improved from 124, now up to 130 on normal saline Chronic iron deficiency anemia despite being on oral iron for over one year Chronic hypertension Previously on valsartan and nisoldipine Chronic alcohol use (patient states 2-3 beers per day)-no signs or symptoms of withdrawal Easy bruising-with normal INR, PTT and platelet count 06/02/17 Continue oral clindamycin patient seems to be responding quite well. Monitor blood pressure which has improved since nisoldipine and valsartan were restarted Regarding the patient's chronic iron deficiency anemia despite oral iron over one year. Would also consider EGD and colonoscopy for workup of anemia perhaps has an outpatient Continue Protonix for GI protection considering his alcohol use and chronic anemia. Have changed it to oral Continue SCDs for DVT prophylaxis. Increase activity as tolerated. Will need wound vac post discharge. 06/03/17 Early nec fasc/Severe cellulitis of the right groin, scrotum and penis- surgical cultures with methicillin-resistant Staph aureus (gram stain reviewed) and neg BC x2, previously received cefepime, vancomycin and clindamycin-now on oral clindamycin S/p surgical debridement on 05/30- Resolved sepsis-initially with fever, elevated white count, now with source control Hyponatremia-sodium improved from 124, now up to 133 Mild metabolic acidosis-resolved Chronic iron deficiency anemia despite being on oral iron for over one year will need further follow-up Chronic hypertension valsartan and nisoldipine restarted 06/04/17 Continue oral clindamycin Unfortunately the patient is unable to tolerate wound VAC changes with oral pain medications. At this time we'll keep him in the hospital with IV medication prior to his wound VAC changes. When I discussed the care with Dr. Cardenas on Sunday, he suggested the patient may be able to have a primary closure of his wound next week. Monitor blood pressure which has improved since nisoldipine and valsartan were restarted EGD and colonoscopy for workup of anemia as an outpatient Continue Protonix for GI protection considering his alcohol use and chronic anemia. Continue SCDs for DVT prophylaxis. Increase activity as tolerated. Patient maintains in contact precautions. 06/05/17 16:06 Wound VAC converted to simple vac due to persistent leakage. Continue oral clindamycin. Being evaluated for swing status since IV narcotics required with wound VAC changes. Otherwise stable; treat with IV iron due to persistent iron deficiency on oral supplement.
--- NOTE | 2017-06-05 15:36 | Wound Care Progress Note ---
Wound Center Progress Note: In to see pt who is having leaking of the instill wound vac. I have been to see him several times today for this issue. At this time I removed the instill option and placed vac on vac only settings with suction at 125mm.
[2017-06-05] MEDS ORDERED: IRON DEXTRAN COMPLEX 100mg/2ml INJECTION IV ONE (16:09)
[2017-06-05] MEDS ORDERED: NS 1,000 ML IV SCH (16:28)
[2017-06-05] MEDS: ZINC GLUCONATE 50 MG TABLET PO SCH (16:51)
--- NOTE | 2017-06-05 16:51 | Consult Note ---
- Consultation Dx: Chronic Anemia: Will give TDI (Total Dose Infusion) over 4 hours. Actual body weight = 91.5kg Hgb Level = 9.8 g/dL Calculated Dosing weight = 77.6 kg Total dose needed: 1,900 mg (38 mL) Will give test dose of 25mg IV push over 30 seconds. Watch VS q 15 minutes x 1 hr. (watching for anaphylaxis, respiratory distress, hives.) If no reaction will give full dose in NS 500ml TRA 125ml/hr. Watch VS q 1 hr during infusion. Thank you.
[2017-06-05] MEDS ORDERED: IRON DEXTRAN 1,900 MG in NS 500ml 500 ML IV ONE (18:00)
[2017-06-05] MEDS: ATORVASTATIN 10 MG TABLET PO SCH (21:10)
[2017-06-06] MEDS: SALINE FLUSH 10ml SYRINGE IVF PRN (03:08)
[2017-06-06] MEDS: PANTOPRAZOLE 40 MG TABLET PO SCH (05:33)
[2017-06-06] MEDS: FERROUS SULFATE 324 MG TABLET PO SCH (07:58)
[2017-06-06] MEDS: VITAMIN E 1,000 UNIT CAPSULE PO SCH (08:07)
[2017-06-06] MEDS: CLINDAMYCIN 300 MG CAPSULE PO SCH ×4 (08:08→21:46)
[2017-06-06] MEDS: Valsartan 160 MG TABLET PO SCH (08:08)
[2017-06-06] MEDS: NISOLDIPINE ER 20 MG TABLET PO SCH (08:09)
[2017-06-06] MEDS: MULTI-VITAMIN PLAIN TABLET PO SCH (08:10)
[2017-06-06] MEDS: OMEGA-3 ACID ESTERS 1 GM CAPSULE PO SCH (08:10)
[2017-06-06] MEDS: ASCORBIC ACID 500 MG TABLET PO SCH (08:10)
[2017-06-06] MEDS: FOLIC ACID 1 MG TABLET PO SCH (08:10)
--- NOTE | 2017-06-06 12:48 | Progress Note ---
<Lilibeth Benz - Last Filed: 06/06/17 13:09> Subjective: Patient seen in follow-up today. Overall he continues to do well. Has not required any pain medication other than with dressing changes. He had some trouble with his instill wound VAC leaking It was switched to suction only and he's had no further problems. He continues on clindamycin and he notes that the initial redness associated with infection continues to improve. Telemetry was discontinued yesterday as he was consistently in sinus rhythm. He was started on IV iron due to his persistent iron deficiency anemia despite oral treatment. He is eating well. Reports normal bowel movements. Objective Vital signs: Temperature 96.4 F L 06/06/17 11:00 Pulse Rate 76 06/06/17 11:00 Respiratory Rate 18 06/06/17 11:00 Blood Pressure 123/75 06/06/17 11:00 Pulse Oximetry 92 06/06/17 11:00 Oxygen Delivery Method Room Air Weight: 90.2 kg - Constitutional Present: well nourished, well developed - Routine HEENT Exam Eye: Present: EOMI ENT: Present: mucous membranes moist, dentition normal - Routine Respiratory Exam Present: CTA bilaterally. Absent: wheezes - Routine Cardiovascular Exam Present: RRR. Absent: murmur - Routine Abdominal Exam Present: soft, normoactive bowel sounds, non distended. Absent: tenderness - Routine Exam Comments: Wound VAC is in place and draining. Erythema continues to improve and essentially resolved on the abdomen and hip. Continues to have mild erythema to the scrotum. Tender to palpation over R testicle. - Routine Extremities Exam Present: no edema, normal capillary refill - Routine Skin Exam Present: dry, warm - Routine Neurological Exam Present: alert, oriented X3, CN II-XII intact - Routine Lymphatic Exam Lymphatic: Absent: adenopathy - Routine Psychiatric Exam Present: normal affect Results - Labs CBC & Chem 7: 06/06/17 04:32 06/04/17 04:05 Microbiology Results: Microbiology 05/30/17 12:46 Groin Gram Stain - Final 05/30/17 12:46 Groin Deep Wound Culture - Final Staphylococcus aureus, MRSA Assessment and Plan Assessment and Plan: Patient has dressing change scheduled for tomorrow with wound care clinic. I discussed his case with Jasmyne Torres at the wound clinic. She does not think he will be able to tolerate any dressing changes without IV Dilaudid. In this case , he will continue his hospital stay for IV pain control. She states she has been in touch with Dr. Cardenas who said patient may be a candidate for wound closure early next week. Will continue clindamycin. He has completed his dose of the IV iron. Will plan to check a CBC in 2 days. Sepsis Assessment - Evaluation Sepsis screening result: No Definite Risk Hospital Course Summary Disclaimer: The visit summary below is not to be considered part of the above Progress Note. Hospital Course: 05/30/17 Discussed this morning with Dr. Cardenas. He did take the patient to the OR today for wide surgical debridement of necrotic skin, subcutaneous tissue and fascia. A large abscess was found. Deep wound cultures were obtained. Continue IV fluids for hyponatremia and recheck tomorrow. Advance diet when okay with Dr. Cardenas Monitor blood pressure and consider restarting nisoldipine Regarding the patient's chronic iron deficiency anemia despite oral iron over one year, consider IV iron when signs of infection have improved. Would also consider EGD and colonoscopy for workup of anemia. Continue Protonix for GI protection considering his alcohol use and chronic anemia. 05/31/17 IV fluids discontinued, nisoldipine resumed. Cefepime discontinued-sensitivities pending to permit further adjustment of antibiotics. 06/01/17 Early nec fasc/Severe cellulitis of the right groin, scrotum and penis- surgical cultures with methicillin-resistant Staph aureus (gram stain reviewed) and neg BC x2, cefepime, vancomycin and clindamycin initiated 05/29/2017 - converted to oral clindamycin with discontinuation of IV antibiotics Hyponatremia-sodium improved from 124, now up to 130 on normal saline Chronic iron deficiency anemia despite being on oral iron for over one year Chronic hypertension Previously on valsartan and nisoldipine Chronic alcohol use (patient states 2-3 beers per day)-no signs or symptoms of withdrawal Easy bruising-with normal INR, PTT and platelet count 06/02/17 Continue oral clindamycin patient seems to be responding quite well. Monitor blood pressure which has improved since nisoldipine and valsartan were restarted Regarding the patient's chronic iron deficiency anemia despite oral iron over one year. Would also consider EGD and colonoscopy for workup of anemia perhaps has an outpatient Continue Protonix for GI protection considering his alcohol use and chronic anemia. Have changed it to oral Continue SCDs for DVT prophylaxis. Increase activity as tolerated. Will need wound vac post discharge. 06/03/17 Early nec fasc/Severe cellulitis of the right groin, scrotum and penis- surgical cultures with methicillin-resistant Staph aureus (gram stain reviewed) and neg BC x2, previously received cefepime, vancomycin and clindamycin-now on oral clindamycin S/p surgical debridement on 05/30- Resolved sepsis-initially with fever, elevated white count, now with source control Hyponatremia-sodium improved from 124, now up to 133 Mild metabolic acidosis-resolved Chronic iron deficiency anemia despite being on oral iron for over one year will need further follow-up Chronic hypertension valsartan and nisoldipine restarted 06/04/17 Continue oral clindamycin Unfortunately the patient is unable to tolerate wound VAC changes with oral pain medications. At this time we'll keep him in the hospital with IV medication prior to his wound VAC changes. When I discussed the care with Dr. Cardenas on Sunday, he suggested the patient may be able to have a primary closure of his wound next week. Monitor blood pressure which has improved since nisoldipine and valsartan were restarted EGD and colonoscopy for workup of anemia as an outpatient Continue Protonix for GI protection considering his alcohol use and chronic anemia. Continue SCDs for DVT prophylaxis. Increase activity as tolerated. Patient maintains in contact precautions. 06/05/17 16:06 Wound VAC converted to simple vac due to persistent leakage. Continue oral clindamycin. Being evaluated for swing status since IV narcotics required with wound VAC changes. Otherwise stable; treat with IV iron due to persistent iron deficiency on oral supplement. 06/06/17 13:16 Dressing change scheduled for tomorrow with wound care clinic. He will continue his hospital stay for IV pain control. Dr Cardenas has stated patient may be a candidate for wound closure early next week. Will continue clindamycin. He has completed his dose of the IV iron. Will plan to check a CBC in 2 days. <Swapna Caballero - Last Filed: 06/06/17 17:02> Objective Vital signs: Temperature 96.9 F 06/06/17 15:00 Pulse Rate 67 06/06/17 15:00 Respiratory Rate 16 06/06/17 15:00 Blood Pressure 130/80 06/06/17 15:00 Pulse Oximetry 96 06/06/17 15:00 Oxygen Delivery Method Room Air Results - Labs CBC & Chem 7: 06/06/17 04:32 06/04/17 04:05 Microbiology Results: Microbiology 05/30/17 12:46 Groin Gram Stain - Final 05/30/17 12:46 Groin Deep Wound Culture - Final Staphylococcus aureus, MRSA Assessment and Plan Assessment and Plan: I have independently evaluated and examined this patient. I reviewed the chart, the patient's history, and the SKEIN SPOOLER/PA's documented findings as above. We discussed and formulated the assessment and plan as above with additions as below: Impression: -Early nec fasc/Severe cellulitis of the right groin, scrotum and penis- surgical cultures with methicillin-resistant Staph aureus (gram stain reviewed) and neg BC x2, previously received cefepime, vancomycin and clindamycin-now on oral clindamycin since June 01. S/p surgical debridement on 05/30- -Resolved sepsis-initially with fever, elevated white count, now with source control -Hyponatremia-sodium improved from 124, stable 133 -Essential hypertension - continues on valsartan and nisoldipine restarted, blood pressure still occasionally elevated -Chronic alcohol use (patient states 2-3 beers per day)-no signs or symptoms of withdrawal -Easy bruising-with normal INR, PTT -Thrombocytosis-reactive -Iron deficiency anemia, IV iron given 06/06 Nate has no complaints today. Instill VAC discontinued yesterday; for wound VAC change tomorrow. 1900 mg iron and dextran administered IV yesterday for chronic iron deficiency, patient reminded of need for EGD/colonoscopy in the future. Platelet count slowly climbing-may be due to combination of inflammation and iron deficiency. Leukocytosis has fully resolved. PT/OT consults ordered; discussed with case management. Continues to require IV narcotics with wound VAC changes. Hospital Course Summary Disclaimer: The visit summary below is not to be considered part of the above Progress Note.
[2017-06-06] MEDS: MAGNESIUM OXIDE 400 MG TABLET PO SCH (16:14)
[2017-06-06] MEDS: ATORVASTATIN 10 MG TABLET PO SCH (21:46)
[2017-06-07] MEDS: SALINE FLUSH 10ml SYRINGE IVF PRN ×2 (02:53→21:13)
[2017-06-07] MEDS: PANTOPRAZOLE 40 MG TABLET PO SCH (05:42)
[2017-06-07] MEDS: VITAMIN E 1,000 UNIT CAPSULE PO SCH (08:14)
[2017-06-07] MEDS: CLINDAMYCIN 300 MG CAPSULE PO SCH ×4 (08:14→21:14)
[2017-06-07] MEDS: FOLIC ACID 1 MG TABLET PO SCH (08:14)
[2017-06-07] MEDS: Valsartan 160 MG TABLET PO SCH (08:14)
[2017-06-07] MEDS: MULTI-VITAMIN PLAIN TABLET PO SCH (08:14)
[2017-06-07] MEDS: FERROUS SULFATE 324 MG TABLET PO SCH (08:14)
[2017-06-07] MEDS: NISOLDIPINE ER 20 MG TABLET PO SCH (08:14)
[2017-06-07] MEDS: OMEGA-3 ACID ESTERS 1 GM CAPSULE PO SCH (08:15)
[2017-06-07] MEDS: ASCORBIC ACID 500 MG TABLET PO SCH (08:15)
--- NOTE | 2017-06-07 14:39 | Progress Note ---
<Lilibeth Benz - Last Filed: 06/07/17 15:58> Subjective: Patient is seen today in follow-up. He states overall he is doing well. He is only requiring pain medication prior to dressing change. States he is "ready to get out of here." He is due for a dressing change tomorrow. In discussing his case with Jasmyne Torres (wound clinic), she doesn't feel he will tolerate a dressing change without IV meds, but agrees to try dressing change tomorrow with an increased dose of p.o. narcotics. Dr. Cardenas will likely do a secondary closure early next week. Case management looking at discharge options. Objective Vital signs: Temperature 97.6 F 06/07/17 08:00 Pulse Rate 66 06/07/17 08:00 Respiratory Rate 18 06/07/17 08:00 Blood Pressure 163/98 H 06/07/17 08:00 Pulse Oximetry 95 06/07/17 08:00 Oxygen Delivery Method Room Air Weight: 89.9 kg - Constitutional Present: no acute distress, well nourished, well developed - Routine HEENT Exam Head: Present: normocephalic, atraumatic Eye: Present: EOMI ENT: Present: mucous membranes moist - Routine Respiratory Exam Present: CTA bilaterally. Absent: wheezes - Routine Cardiovascular Exam Present: RRR, S1, S2. Absent: murmur - Routine Extremities Exam Present: no edema, normal capillary refill - Routine Skin Exam Present: dry, warm - Routine Neurological Exam Present: alert, oriented X3, CN II-XII intact - Routine Lymphatic Exam Lymphatic: Absent: adenopathy - Routine Psychiatric Exam Present: normal affect, normal thought process Results - Labs CBC & Chem 7: 06/06/17 04:32 06/04/17 04:05 Microbiology Results: Microbiology 05/30/17 12:46 Groin Gram Stain - Final 05/30/17 12:46 Groin Deep Wound Culture - Final Staphylococcus aureus, MRSA Assessment and Plan Assessment and Plan: Impression: -Early necrotizing fasciitis/Severe cellulitis of the right groin, scrotum and penis- surgical cultures with methicillin-resistant Staph aureus and neg BC x2, previously received cefepime, vancomycin and clindamycin-now on oral clindamycin since June 01. S/p surgical debridement on 05/30/17. -Resolved sepsis -Hyponatremia-sodium improved from 124, stable 133 -Essential hypertension - continues on valsartan and nisoldipine -Chronic alcohol use (patient states 2-3 beers per day) -Thrombocytosis-reactive -Iron deficiency anemia, IV iron given 06/06 Plan: Continue oral clindamycin. Will see how he does with dressing change tomorrow. If he is able to have this performed without IV pain medication, he could potentially be dismissed and return as outpatient for surgical follow-up. Will plan to give two [place] 5/325 prior to his dressing change tomorrow. Communication order was entered into chart regarding [place]. His blood pressures continue to run above goal. We'll increase his nisoldipine to 30 mg. He is currently on 20 mg. Continue to monitor blood pressures. CBC tomorrow to follow-up on thrombocytosis and recent IV iron infusion. Sepsis Assessment - Evaluation Sepsis screening result: No Definite Risk Hospital Course Summary Disclaimer: The visit summary below is not to be considered part of the above Progress Note. Hospital Course: 05/30/17 Discussed this morning with Dr. Cardenas. He did take the patient to the OR today for wide surgical debridement of necrotic skin, subcutaneous tissue and fascia. A large abscess was found. Deep wound cultures were obtained. Continue IV fluids for hyponatremia and recheck tomorrow. Advance diet when okay with Dr. Cardenas Monitor blood pressure and consider restarting nisoldipine Regarding the patient's chronic iron deficiency anemia despite oral iron over one year, consider IV iron when signs of infection have improved. Would also consider EGD and colonoscopy for workup of anemia. Continue Protonix for GI protection considering his alcohol use and chronic anemia. 05/31/17 IV fluids discontinued, nisoldipine resumed. Cefepime discontinued-sensitivities pending to permit further adjustment of antibiotics. 06/01/17 Early nec fasc/Severe cellulitis of the right groin, scrotum and penis- surgical cultures with methicillin-resistant Staph aureus (gram stain reviewed) and neg BC x2, cefepime, vancomycin and clindamycin initiated 05/29/2017 - converted to oral clindamycin with discontinuation of IV antibiotics Hyponatremia-sodium improved from 124, now up to 130 on normal saline Chronic iron deficiency anemia despite being on oral iron for over one year Chronic hypertension Previously on valsartan and nisoldipine Chronic alcohol use (patient states 2-3 beers per day)-no signs or symptoms of withdrawal Easy bruising-with normal INR, PTT and platelet count 06/02/17 Continue oral clindamycin patient seems to be responding quite well. Monitor blood pressure which has improved since nisoldipine and valsartan were restarted Regarding the patient's chronic iron deficiency anemia despite oral iron over one year. Would also consider EGD and colonoscopy for workup of anemia perhaps has an outpatient Continue Protonix for GI protection considering his alcohol use and chronic anemia. Have changed it to oral Continue SCDs for DVT prophylaxis. Increase activity as tolerated. Will need wound vac post discharge. 06/03/17 Early nec fasc/Severe cellulitis of the right groin, scrotum and penis- surgical cultures with methicillin-resistant Staph aureus (gram stain reviewed) and neg BC x2, previously received cefepime, vancomycin and clindamycin-now on oral clindamycin S/p surgical debridement on 05/30- Resolved sepsis-initially with fever, elevated white count, now with source control Hyponatremia-sodium improved from 124, now up to 133 Mild metabolic acidosis-resolved Chronic iron deficiency anemia despite being on oral iron for over one year will need further follow-up Chronic hypertension valsartan and nisoldipine restarted 06/04/17 Continue oral clindamycin Unfortunately the patient is unable to tolerate wound VAC changes with oral pain medications. At this time we'll keep him in the hospital with IV medication prior to his wound VAC changes. When I discussed the care with Dr. Cardenas on Sunday, he suggested the patient may be able to have a primary closure of his wound next week. Monitor blood pressure which has improved since nisoldipine and valsartan were restarted EGD and colonoscopy for workup of anemia as an outpatient Continue Protonix for GI protection considering his alcohol use and chronic anemia. Continue SCDs for DVT prophylaxis. Increase activity as tolerated. Patient maintains in contact precautions. 06/05/17 16:06 Wound VAC converted to simple vac due to persistent leakage. Continue oral clindamycin. Being evaluated for swing status since IV narcotics required with wound VAC changes. Otherwise stable; treat with IV iron due to persistent iron deficiency on oral supplement. 06/06/17 13:16 Dressing change scheduled for tomorrow with wound care clinic. He will continue his hospital stay for IV pain control. Dr Cardenas has stated patient may be a candidate for wound closure early next week. Will continue clindamycin. He has completed his dose of the IV iron. Will plan to check a CBC in 2 days. 06/07/17 14:58 Continue oral clindamycin. Will plan to give two [place] 5/325 prior to his dressing change tomorrow. Blood pressures inadequately controlled. Increase his nisoldipine to 30 mg. He is currently on 20 mg. CBC tomorrow to follow-up on thrombocytosis and recent IV iron infusion <Swapna Caballero - Last Filed: 06/07/17 17:34> Objective Vital signs: Temperature 95.8 F L 06/07/17 15:58 Pulse Rate 69 06/07/17 15:58 Respiratory Rate 16 06/07/17 15:58 Blood Pressure 143/93 H 06/07/17 15:58 Pulse Oximetry 95 06/07/17 15:58 Oxygen Delivery Method Room Air Results - Labs CBC & Chem 7: 06/06/17 04:32 06/04/17 04:05 Microbiology Results: Microbiology 05/30/17 12:46 Groin Gram Stain - Final 05/30/17 12:46 Groin Deep Wound Culture - Final Staphylococcus aureus, MRSA Assessment and Plan Assessment and Plan: I have independently evaluated and examined this patient. I reviewed the chart, the patient's history, and the LITERATURE TEACHER/PA's documented findings as above. We discussed and formulated the assessment and plan as above with additions as below: Nate complains of difficulty sleeping in the hospital due to inability to move from side to side secondary to wound VAC and smaller bed than he is accustomed to. He's having no difficulty with pain other than when VAC change and he denied dyspnea. He reports he was able to ambulate without difficulty with PT evaluation earlier today and denied lightheadedness. NAD, alert Respirations nonlabored, breath sounds clear Abdomen soft, nontender No edema Hemoccult 1 negative Medication changes discussed with pharmacy-will return to nisoldipine 20 mg daily as 30 mg tablets not available in hospital pharmacy and even generic medication is quite expensive. We will increase valsartan to 320 mg daily instead and monitor blood pressure. Ajien added for sleep. I'm inclined to try [place] 10 1-2 for VAC changes to improve pain control. Reassess sodium with labs in a.m. Discussed with nursing and case management. Hospital Course Summary Disclaimer: The visit summary below is not to be considered part of the above Progress Note.
[2017-06-07] MEDS ORDERED: ZOLPIDEM 5 MG TABLET PO PRN (15:48)
[2017-06-07] MEDS: ZINC GLUCONATE 50 MG TABLET PO SCH (15:53)
[2017-06-07] MEDS ORDERED: HYDROCODONE/APAP 10 MG/325 MG TABLET PO PRN (17:28)
[2017-06-07] MEDS ORDERED: Valsartan 160 MG TABLET PO SCH (17:30)
[2017-06-07] MEDS: ATORVASTATIN 10 MG TABLET PO SCH (21:14)
[2017-06-08 00:33] VITALS: O2SAT 97
[2017-06-08] MEDS: PANTOPRAZOLE 40 MG TABLET PO SCH (05:44)
[2017-06-08] MEDS: VITAMIN E 1,000 UNIT CAPSULE PO SCH (08:23)
[2017-06-08] MEDS: CLINDAMYCIN 300 MG CAPSULE PO SCH ×3 (08:23→18:19)
[2017-06-08] MEDS: OMEGA-3 ACID ESTERS 1 GM CAPSULE PO SCH (08:24)
[2017-06-08] MEDS: MULTI-VITAMIN PLAIN TABLET PO SCH (08:24)
[2017-06-08] MEDS: ASCORBIC ACID 500 MG TABLET PO SCH (08:24)
[2017-06-08] MEDS: FOLIC ACID 1 MG TABLET PO SCH (08:24)
[2017-06-08] MEDS: FERROUS SULFATE 324 MG TABLET PO SCH (08:24)
[2017-06-08] MEDS ORDERED: NISOLDIPINE ER 20 MG TABLET PO SCH ×2 (09:00)
[2017-06-08] MEDS: MAGNESIUM OXIDE 400 MG TABLET PO SCH (15:11)
[2017-06-08 15:17] VITALS: BP 114/68; PULSE 67; RESP 17; TEMP 97
--- NOTE | 2017-06-08 16:34 | Discharge Instructions ---
Discharge Plan - Med Rec/Dispo Referrals/Follow Up: Luis Xiao MD [Family Provider] - (1-2 weeks) Brijesh Cardenas MD [Physician] - (Next week for wound VAC change, possible wound closure) Radha Instructions: Cellulitis (GEN), Sepsis (GEN) Prescriptions: New Clindamycin [Cleocin] 300 mg PO QID #28 capsule Hydrocodone/APAP 10/325 [[place] 10/325] 1 - 2 tab PO DAILY PRN #10 tablet PRN Reason: Pain Continue Atorvastatin [Lipitor] 10 mg PO DAILY Multivitamin [One Daily Multivitamin] 1 tab PO DAILY [place]-3/Dha/Epa/Fish Oil [Fish Oil 1,000 mg Softgel] 1,000 mg PO DAILY Cholecalciferol (Vitamin D3) [Vitamin D3] 1,000 unit PO DAILY Vitamin E 1,000 unit PO DAILY Ascorbate Calcium [Vitamin C] 500 mg PO DAILY Acetaminophen [Acetaminophen Extra Strength] 1,000 mg PO Q6H PRN PRN Reason: Pain Magnesium Oxide [Magnesium] 500 mg PO MOWEFR Valsartan [Diovan] 160 mg PO DAILY Nisoldipine 25.5 mg PO DAILY Zinc Amino Acid Chelate [Zinc] 50 mg PO TUTHSA [place] 160 mg PO DAILY Discontinued Ferrous Sulfate [Iron] 325 mg PO DAILY Discharge Instructions/Outpatient Orders: Final Provider Discharge Instructions Location: Determined By Patient - Disposition 01 Discharged Home, Self-Care
--- NOTE | 2017-06-08 21:25 | Discharge Summary ---
Discharge Information Date of admission: 05/29/17 14:43 Anticipated date of discharge: 06/08/17 Attending Physician: Swapna Caballero MD Primary care physician: Luis Xiao MD Consults: Brijesh Cardenas - Discharge Diagnosis (1) Abscess of groin, right Status: Acute (2) Necrotizing fasciitis Status: Acute (3) Iron deficiency anemia Qualifiers: Iron deficiency anemia type: unspecified iron deficiency Qualified Code(s) : D50.9 - Iron deficiency anemia, unspecified Problem Details: Presumed chronic GI blood loss Status: Acute (4) Hyponatremia Status: Chronic (5) Reactive thrombocytosis Status: Acute - Procedures Procedures: Exploration of wound involving the right scrotal area and right inguinal region with excisional debridement of skin, subcutaneous tissues, and a small portion of the fascia on 05/30/17 - Laboratory Labs: White count on admission 17.1 with hemoglobin 9.8 and platelet count 301,000; admission sodium 124, creatinine 1.1, liver enzymes unremarkable. Serum iron 18, TIBC 264, iron saturation 7%, B-12 634, folic acid greater than 20-all obtained on date of admission 06/08/17 04:21 06/08/17 04:21 - Microbiology Microbiology 05/30/17 12:46 Groin Gram Stain - Final 05/30/17 12:46 Groin Deep Wound Culture - Final Staphylococcus aureus, MRSA - Radiology Radiology: CT of the pelvis with contrast on 05/29/17: The visualized small and large bowel loops in the pelvis are unremarkable. The bladder appears normal. No free fluid within the pelvis. Muscular attenuation is within normal limits. There is severe edema throughout the scrotum with scrotal skin thickening up to 1.5 cm in approximate thickness. The testicles cannot be seen discretely apart from this edematous tissue. There is also skin thickening and edema involving the penile shaft with edematous superficial skin measuring over 1 cm in thickness. There is inflammation extending along the right inguinal canal region with a few reactive lymph nodes and skin thickening. There is no discrete rim-enhancing abscess or drainable fluid collection appreciated. I do not see any subcutaneous or fascial area gas to suggest a necrotizing fasciitis/Anthony's gangrene. Bone windows show degenerative changes in the lower lumbar spine. There is a coarse probable calcification seen within the anterior scrotum measuring 6 mm in size which appears to be in the thickened skin layer. Impression: Severe penile, scrotal and right inguinal area inflammation and edema presumably due to a severe cellulitis. No drainable abscess seen. Chest x-ray on 05/29/17 demonstrated no acute cardiopulmonary abnormality. History of Present Illness HPI: The patient is very pleasant 61-year-old male who states that he noted on the of this month that he had a bulge on the bottom of his right scrotum. He went to the emergency room and it was lanced and he was started on Bactrim. He was told to follow-up with his primary care physician today. Patient noted that when he went back to work on the the area became more swollen and painful and it was hard for him to work. He was intermittently using cold packs to the area to try to help it. Today he noticed that he had increased redness and tenderness in the scrotum penis and groin and presented to the emergency room. In the ER labs showed a white count of 17.1 with 83% neutrophils and 2% bands. Hemoglobin was 9.8. Temperature was 100.7. Heart rate 102. Blood pressure 179/ 82. Lactate was normal at 1.3. Sodium was 124. Remainder of the metabolic profile was essentially normal. Blood cultures were obtained and the patient was started on cefepime and vancomycin. CT pelvis was obtained and showed severe penile, scrotal and right inguinal area inflammation and edema presumably due to a severe cellulitis. No drainable abscess seen. No subcutaneous or fascial area gas to suggest a necrotizing fasciitis or Anthony' s gangrene. The hospital service was called to admit the patient. Dr. Cardenas was notified by the ER physician and was agreeable to surgical consultation. On my exam the patient states that he is tired and feels cold. He works nights so this is the time of day he is usually sleeping. He denies any pain in the right groin unless he is moving. He is not having any difficulties urinating. He has not necessarily felt febrile or sweaty. He has not noticed any chills. He does feel cold but he attributes this to the hospital being cold. He has been eating and drinking okay. He has not had any unusual weight loss. He states that since being in the emergency room he has a mild cough and phlegm in his throat. He states he has chronic anemia and is on iron. He is scheduled for a colonoscopy later this week. He has never had a colonoscopy in the past. He denies any hematemesis, black stools or red bloody stools. He denies any bleeding problems other than easy bruising. Hospital Course This is a general summary of the patient's hospital course. For more details refer to the complete medical record. Hospital course: Impression: -Early necrotizing fasciitis/Severe cellulitis of the right groin, scrotum and penis-surgical cultures with MRSA and neg BC x2, cefepime, vancomycin, clindamycin 05/29-06/01; oral clindamycin since 06/01. S/p surgical debridement on 05/30/17. -Resolved sepsis -Hyponatremia-sodium 124 on admission -Essential hypertension - continues on valsartan and nisoldipine -Chronic alcohol use (patient states 2-3 beers per day) -Thrombocytosis-reactive -Iron deficiency anemia, IV iron given 06/05 Mr. Cloud was admitted to the hospital on 05/24 with painful swelling in the right scrotum/inguinal area which had failed trial of oral antibiotics initiated several days earlier. Leukocytosis was present and temperature of 100.7. Dr. Cardenas was consulted. Patient was started on IV vancomycin, cefepime, and clindamycin. 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 Dr. Cardenas took the patient to the operating room on 05/30 for white surgical debridement of necrotic skin and subcutaneous tissue. A large abscess was found and deep wound cultures were obtained which were ultimately positive for MRSA. Antibiotics were narrowed to vancomycin and clindamycin when staph aureus was identified and subsequently changed to oral clindamycin alone on 06/01 when sensitivities were known. Leukocytosis improved progressively; reactive thrombocytosis evolved during the hospitalization with discharge platelet count as noted above. A wound VAC was placed surgically and remains present at discharge. The wound has improved progressively and may be approaching surgical closure. Pain associated with wound VAC changes his prolonged hospitalization as IV medications were needed with VAC changes until the date of discharge when higher dose [place] was utilized successfully permitting VAC change without IV medications. The patient will follow-up in wound care clinic early next week for VAC change and reassessment of the wound by Dr. Cardenas to determine if he is ready to undergo formal surgical closure. He was discharged with 1 week of po clindamycin pending reassessment of the wound. Hyponatremia was present on admission and improved throughout the hospital course. The patient was treated with normal saline early in the hospitalization and was felt to be somewhat dehydrated on admission. It's possible the preceding alcohol use contributed to hyponatremia. There is no indication of alcohol withdrawal throughout the hospitalization. Patient had persistent anemia throughout the hospitalization with iron iron deficiency demonstrated. He has been on oral iron replacement for more than one year by history. Given failure to respond to oral iron it was elected to treat with IV iron during the hospitalization. He received full iron replacement on and there was suggestion of slight improvement in hemoglobin immediately prior to discharge. Outpatient follow-up recommended. Additionally need for formal evaluation with EGD/colonoscopy has been discussed with the patient on multiple occasions. One Hemoccult was obtained and was negative. Antihypertensives were held initially but resumed after several days. He remains on his usual regimen at discharge. On the date of discharge the patient reported that he felt fine. He denied dyspnea, nausea, fever, or pain unrelated to wound VAC change. The patient is alert and respirations are nonlabored. Abdomen is soft and nontender. I was not present for wound VAC change but nursing reported that he tolerated the VAC change after taking 2 [place] 10. He was somewhat drowsy with the medication however and has been advised that he will need to have someone drive him to the wound care center and take him home after wound VAC change next week to permit [place] use. Stable for discharge today with plans to follow-up in the wound care center for wound VAC change early next week. Reassess for wound closure at that time. Continue oral clindamycin in the intervening time. Home medications unchanged other than discontinuation of iron as he received IV replacement. Patient is to follow up with Dr. Xiao in 1-2 weeks for reassessment of blood pressure and to follow up on hematologic abnormalities. He'll have follow-up with Dr. Cardenas at the wound care center next week. Time spent with patient: discharge greater than 30 minutes Discharge Plan - Med Rec/Dispo Referrals/Follow Up: Brijesh Cardenas MD [Physician] - (Next week for wound VAC change, possible wound closure) Luis Xiao MD [Family Provider] - (1-2 weeks) [place] Instructions: Cellulitis (GEN), Sepsis (GEN), Negative Pressure Wound Therapy (DC) Prescriptions: New Clindamycin [Cleocin] 300 mg PO QID #28 capsule Hydrocodone/APAP 10/325 [[place] 10/325] 1 - 2 tab PO DAILY PRN #10 tablet PRN Reason: Pain Continue Atorvastatin [Lipitor] 10 mg PO DAILY Multivitamin [One Daily Multivitamin] 1 tab PO DAILY [place]-3/Dha/Epa/Fish Oil [Fish Oil 1,000 mg Softgel] 1,000 mg PO DAILY Cholecalciferol (Vitamin D3) [Vitamin D3] 1,000 unit PO DAILY Vitamin E 1,000 unit PO DAILY Ascorbate Calcium [Vitamin C] 500 mg PO DAILY Acetaminophen [Acetaminophen Extra Strength] 1,000 mg PO Q6H PRN PRN Reason: Pain Magnesium Oxide [Magnesium] 500 mg PO MOWEFR Valsartan [Diovan] 160 mg PO DAILY Nisoldipine 25.5 mg PO DAILY Zinc Amino Acid Chelate [Zinc] 50 mg PO TUTHSA [place] 160 mg PO DAILY Discontinued Ferrous Sulfate [Iron] 325 mg PO DAILY Discharge Instructions/Outpatient Orders: Final Provider Discharge Instructions Location: Determined By Patient - Disposition 01 Discharged Home, Self-Care
== END 2017-06-08 18:30 | disposition home health service (06) | DRG 853 ==
LOC: ED 10:14 → MED 14:43
PROVIDERS: ADMIT Internal Medicine; ATTEND Internal Medicine